=== PATIENT | male | born 1965 | race Caucasian/White ===

== ENCOUNTER 2018-01-19 08:35 | Day surgery (SDC) | payer BC ==
[2018-01-15 10:23] VITALS: BMI 37.6
[~2018-01-19 08:35] MED LIST: LACTATED RINGERS 1,000 ML IV SCH
[2018-01-19 08:51] VITALS: RESP 16; TEMP 97.6
[2018-01-19] MEDS ORDERED: LIDOCAINE 1% 20 ML VIAL (10MG/ML) FOR IV START INTRADERMA ONE (08:51)
[2018-01-19 08:56] LABS: Glucose,Whole Blood 112 mg/dL (75-99)
[2018-01-19] MEDS ORDERED: LIDOCAINE 1% INJ 10MG/ML (20 ML MDV) ONE (09:54)
[2018-01-19] MEDS ORDERED: PROPOFOL 10 MG/ML 20 ML VIAL IV ONE (09:54)
--- NOTE | 2018-01-19 10:32 | P.PCN ---
Date of Procedure: 01/19/18 Procedure(s) Performed: Procedure: Colonoscopy and biopsy. Preoperative diagnosis: Screening for neoplasia. Postoperative diagnosis: Right colon polyps biopsied but no large polyps or obvious cancer. Preparation: HalfLytely prep. Sedation: Was provided by anesthesia. Brief clinical history: The patient is a 52-year-old male who is referred for this evaluation for screening for neoplasia age being his risk factor. His father had polyps but there is no family history of colon cancer. The patient has no abdominal complaints, bleeding or anemia. This would be his first colonoscopy. Procedure: With the patient on his left lateral decubitus position and after informed consent and adequate sedation, the perianal area was inspected and it did not show any fissures or fistulas. There were no masses felt on digital rectal examination. The Olympus CFQ 160L and inserted in the rectum in the usual fashion and advanced to the cecum. The preparation was less than ideal on the right side, and in the proximal right colon there were multiple benign- appearing polyps that where somewhat flat and broadly attached to the bowel wall. These were medium in size. Because of his less than ideal preparation on the right side and the flat nature of some of these polyploid areas, I proceeded to obtain multiple biopsies and no attempt was made to snare or remove these polyps piecemeal at this time. Elsewhere, the colon appeared healthy. No other polyps or tumors were seen. I retroflexed the endoscope in the rectum before the endoscope was withdrawn. The patient tolerated the procedure well. Plan: I summarized the findings to the patient. Will await pathology results and make further plans based on his biopsy results. I will keep you updated on his progress.
[2018-01-19 10:57] VITALS: BP 155/93; PULSE 68
== END 2018-01-19 11:32 | disposition home or self-care (01) ==
LOC: ORWHC2ENDO 08:35
DX: Z12.11 Encounter for screening for malignant neoplasm of colon (principal); D12.2 Benign neoplasm of ascending colon; I10 Essential (primary) hypertension; E78.5 Hyperlipidemia, unspecified; E11.9 Type 2 diabetes mellitus without complications; G47.33 Obstructive sleep apnea (adult) (pediatric); E66.01 Morbid (severe) obesity due to excess calories; Z68.37 Body mass index [BMI] 37.0-37.9, adult; Z83.71 Family history of colonic polyps; Z88.1 Allergy status to other antibiotic agents; Z79.84 Long term (current) use of oral hypoglycemic drugs; Z79.899 Other long term (current) drug therapy
CPT/HCPCS: 45380; 88305; J2001; J2704

== ENCOUNTER 2020-09-28 11:25 | Emergency (ER) | payer BC ==
[2020-09-28 11:35] VITALS: TEMP 97.9
[2020-09-28] MEDS ORDERED: HYDROcodone/APAP 5-325MG 1 EACH TAB PO STA (11:54)
--- NOTE | 2020-09-28 11:58 | ED ---
General Adult HPI - General Chief complaint: Back Pain/Injury Stated complaint: Back pain, abd pain, leg numbness Time Seen by Provider: 09/28/20 11:36 Source: patient, RN notes reviewed, old records reviewed Mode of arrival: wheelchair Limitations: no limitations - History of Present Illness Initial comments: 55-year-old male patient to ED for evaluation. Patient reports that yesterday he was walking and he stepped into a hole. He did not fall to the ground however he did stumble. He comes to ED today complaining of left parasternal ba ck pain. Denies any radiculopathy, denies any loss of bowel or bladder control or any lower extremity weakness. Systemic: Pt denies fatigue, fever/chills, rash. Pt denies weakness, night sweats, weight loss. Neuro: Pt denies headache, visual disturbances, syncope or pre-syncope. HEENT: Pt denies ocular discharge or irritation, otalgia, rhinorrhea, pharyngitis or notable lymphadenopathy. Cardiopulmonary: Pt denies chest pain, SOB, heart palpitations, dyspnea on exertion. Abdominal/GI: Pt denies abdominal pain, n/v/d. : Pt denies dysuria, burning w/ urination, frequency/urgency. Denies new onset urinary or bowel incontinence. MSK: Pt denies loss of strength or function in extremities. Neuro: Pt denies new onset weakness, paresthesias. - Related Data Home Medications Medication Instructions Recorded Confirmed Pravastatin Sodium [Pravachol] 40 mg PO PC-SUPPER 12/26/14 09/28/20 amLODIPine BES/OLMESARTAN MED 1 tab PO PC-SUPPER 12/26/14 09/28/20 [Armen 5-40 mg Tablet] metFORMIN HCL [Glucophage] 1,000 mg PO PC-BID 12/26/14 09/28/20 Canagliflozin [Invokana] 300 mg PO PC-SUPPER 01/15/18 09/28/20 Acetaminophen Tab [Tylenol Tab] 500 mg PO Q6H PRN 09/28/20 09/28/20 Ergocalciferol [Vitamin D2] 50,000 unit PO TH 09/28/20 09/28/20 Ibuprofen [Motrin Ib] 200 mg PO Q6H PRN 09/28/20 09/28/20 Semaglutide [Ozempic] 0.5 mg SQ WE 09/28/20 09/28/20 Simethicone [Gas-X] 125 mg PO BID PRN 09/28/20 09/28/20 Allergies Allergy/AdvReac Type Severity Reaction Status Date / Time ceftriaxone sodium Allergy Rash/Hives Verified 09/28/20 12:56 [From Rocephin] Review of Systems ROS Statement: Those systems with pertinent positive or pertinent negative responses have been documented in the HPI. ROS Other: All systems not noted in ROS Statement are negative. Past Medical History Past Medical History: Diabetes Mellitus, Eye Disorder, Hyperlipidemia, Hypertension, Pneumonia Additional Past Medical History / Comment(s): MCKAY CATARACTS History of Any Multi-Drug Resistant Organisms: None Reported Additional Past Surgical History / Comment(s): VASECTOMY,mckay cataracts Past Anesthesia/Blood Transfusion Reactions: No Reported Reaction Additional Past Anesthesia/Blood Transfusion Reaction / Comment(s): no hx general anesthesia or hx blood transfusion Past Psychological History: No Psychological Hx Reported Smoking Status: Never smoker Past Alcohol Use History: None Reported Past Drug Use History: None Reported - Past Family History Mother Family Medical History: Cancer Additional Family Medical History / Comment(s): lung General Exam - General Exam Comments Initial Comments: Constitutional: NAD, AOX3, Pt has pleasant affect. HEENT: NC/AT, trachea midline, neck supple, no lymphadenopathy. External ears appear normal, without discharge. Mucous membranes moist. Eyes PERRLA, EOM intact. There is no scleral icterus. No pallor noted. Cardiopulmonary: RRR, no murmurs, rubs or gallops, no JVD noted. Lungs CTAB in anterior and posterior brandon. No peripheral edema. Abdominal exam: Abdomen soft and non-distended. Abdomen non-tender to palpation in all 4 quadrants. Bowel sounds active in LLQ. No hepatosplenomegaly. No ecchymosis Neuro: CN II-XII grossly intact. No nuchal rigidity. No raccon eyes, no parker sign, no hemotympanum. No cervical spinal tenderness. MSK: No posterior calf tenderness bilaterally, homans sign negative bilaterally. Posterior tibialis and radial pulse +2 bilaterally. Sensation intact in upper and lower extremities. Full active ROM in upper and lower extremities, 5/5 stregnth. mild paralumbar tenderness. No Skin changes. Limitations: no limitations Course Vital Signs 09/28/20 09/28/20 11:30 12:59 Temperature 97.9 F Pulse Rate 97 70 Respiratory 20 18 Rate Blood Pressure 183/99 171/96 O2 Sat by Pulse 96 98 Oximetry Medical Decision Making - Medical Decision Making 55-year-old male patient to ED for evaluation of left paralumbar back discomfort after stepping in a hole yesterday. Denies any chest pain shortness of breath. Deniess any radiculopathy. Denies any red flag symptoms. plain film of lumbar spine displayed spondylosis. Patient did request patient have an EKG that she is thought that he looked a little flushed earlier today. This was performed. Displayed sinus rhythm with frequent PVCs. Patient reports that he felt as if his abdomen was a little bit bloated today. He reports he has been eating very little besides deer chili last 2 days. I did discuss further workup patient including laboratory investigations and computed tomography. This is declining. He reports that he will return for any worsening symptoms. I did monitor patient monitor without any arrhythmia, a few scattered PVCs. Patient denying chest pain shortness breath or palpitations. Will discharge the patient follow-up and return precautions. Case discussed in depth with Dr. Ward. - EKG Data -: EKG Interpreted by Me (and Dr. Ward ) EKG Comments: ventricular rate 68, SD interval 164, QRS 86, QT/QT 380/404. Sinus rhythm with frequent PVCs. No concern for acute ischemia. Disposition Clinical Impression: Lumbar back sprain Disposition: HOME SELF-CARE Condition: Stable Instructions (If sedation given, give patient instructions): Acute Low Back Pain (ED) Additional Instructions: Follow up with PCP tomorrow. Return to ED with any worsening symptoms. Is patient prescribed a controlled substance at d/c from ED?: No Referrals: Geronimo Ortez MD [Primary Care Provider] - 1-2 days
--- NOTE | 2020-09-28 12:28 | XR ---
EXAMINATION TYPE: XR lumbar spine 2 or 3V DATE OF EXAM: 09/28/2020 COMPARISON: None HISTORY: Back pain TECHNIQUE: Three-view lumbar spine FINDINGS: Spondylosis is present. Disc heights appear preserved. Vertebral body heights are preserved . Pedicles are intact. IMPRESSION: 1. Spondylosis. 2. No acute osseous abnormality
[2020-09-28 12:59] VITALS: BP 171/96; PULSE 70; RESP 18
[2020-09-28] MEDS ORDERED: ACET/COD 300 MG/30 MG STARTER PACK 6 TAB BTL PO STA (13:39)
== END 2020-09-28 13:57 | disposition home or self-care (01) ==
LOC: EC 11:25
DX: S33.5XXA Sprain of ligaments of lumbar spine, initial encounter (principal); E11.9 Type 2 diabetes mellitus without complications; E78.5 Hyperlipidemia, unspecified; I10 Essential (primary) hypertension; Z79.84 Long term (current) use of oral hypoglycemic drugs; Z79.899 Other long term (current) drug therapy; Z88.1 Allergy status to other antibiotic agents; Z98.42 Cataract extraction status, left eye; Z98.41 Cataract extraction status, right eye; W18.40XA Slipping, tripping and stumbling without falling, unspecified, initial encounter; Y93.01 Activity, walking, marching and hiking; Y92.89 Other specified places as the place of occurrence of the external cause
CPT/HCPCS: 72100; 93005; 99284

== ENCOUNTER → 2021-10-26 | Outpatient (CLI) | payer BC ==
--- NOTE | 2021-10-26 18:00 | ECHOF ---
Referral Reason:[id number] Heart vavle disorder MEASUREMENTS -------- HEIGHT: 180.3 cm WEIGHT: 115.7 kg BP: 136/65 RVIDd: 3.7 cm (< 3.3) IVSd: 1.5 cm (0.6 - 1.1) LVIDd: 4.6 cm (3.9 - 5.3) LVPWd: 1.5 cm (0.6 - 1.1) IVSs: 2.1 cm LVIDs: 3.0 cm LVPWs: 2.1 cm LA Diam: 3.6 cm (2.7 - 3.8) LAESV Index (A-L): 27.84 ml/m Ao Diam: 3.6 cm (2.0 - 3.7) AV Cusp: 2.2 cm (1.5 - 2.6) MV EXCURSION: 26.725 mm (> 18.000) MV EF SLOPE: 145 mm/s (70 - 150) EPSS: 0.8 cm MV E Pipo: 0.86 m/s MV DecT: 253 ms MV A Pipo: 0.90 m/s MV E/A Ratio: 0.96 FINDINGS -------- Sinus rhythm. This was a technically adequate study. The left ventricular size is normal. There is moderate concentric left ventricular hypertrophy. O verall left ventricular systolic function is normal with, an EF between 60 - 65 %. The right ventricle is mildly enlarged. Normal LA size by volume 22+/-6 ml/m2. The right atrium is normal in size. Interatrial and interventricular septum intact. The aortic valve is trileaflet, and appears structurally normal. No aortic stenosis or regurgitation. The tricuspid valve appears structurally normal. The pulmonic valve was not well visualized. The aortic root size is normal. IVC Not well visulized. There is no pericardial effusion. CONCLUSIONS -------- 1. The left ventricular size is normal. 2. There is moderate concentric left ventricular hypertrophy. 3. Overall left ventricular systolic function is normal with, an EF between 60 - 65 %. 4. The right ventricle is mildly enlarged. 5. There is no pericardial effusion. HOTEL CLERK: Sigrid Smith RDCS
== END | disposition home or self-care (01) ==
LOC: RADECHMAIN 14:37
PROVIDERS: ATTEND Family Medicine
DX: I51.7 Cardiomegaly (principal)
CPT/HCPCS: 93306

== ENCOUNTER 2022-05-30 18:58 | Inpatient (IN) | payer BC ==
[2022-05-30] MEDS ORDERED: SODIUM CHLORIDE 0.9% 1,000 ML IV STA ×2 (19:20→21:35)
[2022-05-30] MEDS ORDERED: ONDANSETRON 4 MG/2 ML VIAL IVP STA (19:20)
--- NOTE | 2022-05-30 19:26 | ED ---
General Adult HPI - General Chief complaint: Nausea/Vomiting/Diarrhea Stated complaint: Vomiting, weakness Time Seen by Provider: 05/30/22 19:04 Source: patient, RN notes reviewed Mode of arrival: ambulatory Limitations: no limitations - History of Present Illness Initial comments: 56-year-old male presents to the emergency department for evaluation of 2 episodes of nausea and vomiting, onset this afternoon. 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 Patient's spouse states when the patient came home from work he was diaphoretic and pale. States she called the PCP who recommended the patient be seen in the ER for further evaluation. Patient states he had Covid last week though was able to work throughout his illness as it was very mild. States he was seen by his PCP on Friday for a recheck with no abnormal findings. Patient states he did feel lightheaded with position change after vomiting this afternoon. Reports attempting to increase fluid intake, but this seemed to lead to additional nausea followed by another episode of vomiting. Patient denies fever, chills, headache, chest pain, shortness of breath, abdominal pain, diarrhea, or dysuria. - Related Data Home Medications Medication Instructions Recorded Confirmed Pravastatin Sodium [Pravachol] 40 mg PO DAILY 12/26/14 05/30/22 amLODIPine BES/OLMESARTAN MED 1 tab PO HS 12/26/14 05/30/22 [Armen 5-40 mg Tablet] metFORMIN HCL [Glucophage] 1,000 mg PO PC-BID 12/26/14 05/30/22 Ergocalciferol [Vitamin D2] 50,000 unit PO TH 09/28/20 05/30/22 Semaglutide [Ozempic] 0.5 mg SQ MO 09/28/20 05/30/22 Dapagliflozin Propanediol [Farxiga] 10 mg PO DAILY 05/30/22 05/30/22 Loratadine-Pseudoeph 10-240 mg 1 tab PO DAILY PRN 05/30/22 05/30/22 [Claritin-D 24 Hour] Sildenafil Citrate [Viagra] 100 mg PO DAILY PRN 05/30/22 05/30/22 Allergies Allergy/AdvReac Type Severity Reaction Status Date / Time ceftriaxone sodium Allergy Rash/Hives Verified 05/30/22 21:17 [From Rocephin] Review of Systems ROS Statement: Those systems with pertinent positive or pertinent negative responses have been documented in the HPI. ROS Other: All systems not noted in ROS Statement are negative. Past Medical History Past Medical History: Diabetes Mellitus, Eye Disorder, Hyperlipidemia, Hypertension, Pneumonia Additional Past Medical History / Comment(s): MCKAY CATARACTS History of Any Multi-Drug Resistant Organisms: None Reported Additional Past Surgical History / Comment(s): VASECTOMY,mckay cataracts Past Anesthesia/Blood Transfusion Reactions: No Reported Reaction Additional Past Anesthesia/Blood Transfusion Reaction / Comment(s): no hx general anesthesia or hx blood transfusion Past Psychological History: No Psychological Hx Reported Smoking Status: Never smoker Past Alcohol Use History: None Reported Past Drug Use History: None Reported - Past Family History Mother Family Medical History: Cancer Additional Family Medical History / Comment(s): lung General Exam Limitations: no limitations (Well-developed, well-nourished male in no acute distress. Initial temperature 98.8, pulse 75, respirations 22, blood pressure 100/68, pulse ox 100% on room air.) General appearance: alert, in no apparent distress Head exam: Present: atraumatic, normocephalic, normal inspection Eye exam: Present: normal appearance, PERRL, EOMI. Absent: scleral icterus, conjunctival injection, periorbital swelling ENT exam: Present: normal exam, normal oropharynx, mucous membranes moist Neck exam: Present: normal inspection, full ROM. Absent: tenderness, meningi smus, lymphadenopathy Respiratory exam: Present: normal lung sounds bilaterally. Absent: respiratory distress, wheezes, rales, rhonchi, stridor, chest wall tenderness Cardiovascular Exam: Present: regular rate, normal rhythm, normal heart sounds. Absent: systolic murmur, diastolic murmur, rubs, gallop, clicks GI/Abdominal exam: Present: soft, normal bowel sounds. Absent: distended, tenderness, guarding, rebound, rigid Extremities exam: Present: normal inspection, normal capillary refill. Absent: pedal edema Back exam: Present: normal inspection, full ROM. Absent: CVA tenderness (R), CVA tenderness (L) Neurological exam: Present: alert, oriented X3, CN II-XII intact, normal gait Psychiatric exam: Present: normal affect, normal mood Skin exam: Present: warm, dry, intact, normal color. Absent: rash Course Vital Signs 05/30/22 05/30/22 18:59 20:24 Temperature 98.8 F 97.9 F Pulse Rate 75 73 Respiratory 22 18 Rate Blood Pressure 100/68 124/76 O2 Sat by Pulse 100 96 Oximetry - Reevaluation(s) Reevaluation #1: 05/30/22 20:55 Critical labs include troponin 0.042 and calcium 13.1. Case discussed with Dr. Wilson. Additional labs ordered. Patient updated on findings. States he is feeling much improved after IV fluid and Zofran. 05/30/22 21:36 Notified of additional critical lab. Will continue to monitor pending additional studies. 05/30/22 22:00 [address]iscuss[address] Hep[address] infusion with Dr. Wilson who recommends initiating this treatment based on EKG changes from baseline and elevated troponin. Patient is agreeable with this POC including hospital admission. Medical Decision Making - Medical Decision Making This is a pleasant 56 year old male with a past medical history of T2D, HTN, and high cholesterol who presents to the Emergency Department for evaluation of nausea and vomiting he attributes to heat related illness. Upon arrival, patient is resting comfortably with minimal complaints of feeling sick. He is alert and oriented, answering questions appropriately. He is neurologically intact with no focal deficits. An IV was placed and patient was given 1 liter of fluids and Zofran with significant improvement. However, patient's laboratory studies revealed a number of abnormalities including renal impairment, which patient denies any history of, hypercalcemia, hyperphospatemia, and an elevated troponin with widespread EKG changes when compared with baseline. Findings were discussed with my attending. Patient will be started on Heparin in the event that this is cardiac related, especially considering patient's recent COVID-19 illness. Nephrology will be consulted for new onset renal impairment. Oncology will be consulted for concerns of malignancy. I did speak with DR. Alexander who agrees to accept this admission. Patient and spouse are agreeable with this plan of care. Attending: Katie. - Lab Data Result diagrams: 05/31/22 03:50 05/31/22 03:50 Lab Results 05/30/22 05/30/22 05/30/22 Range/Units 19:41 19:41 19:41 WBC 9.9 (3.8-10.6) k/uL RBC 5.79 (4.30-5.90) m/uL Hgb 18.1 H (13.0-17.5) gm/dL Hct 53.1 H (39.0-53.0) % MCV 91.7 (80.0-100.0) fL MCH 31.2 (25.0-35.0) pg MCHC 34.0 (31.0-37.0) g/dL RDW 13.9 (11.5-15.5) % Plt Count 313 (150-450) k/uL MPV 7.4 Neutrophils % 68 % Lymphocytes % 23 % Monocytes % 7 % Eosinophils % 0 % Basophils % 0 % Neutrophils # 6.7 (1.3-7.7) k/uL Lymphocytes # 2.3 (1.0-4.8) k/uL Monocytes # 0.7 (0-1.0) k/uL Eosinophils # 0.0 (0-0.7) k/uL Basophils # 0.0 (0-0.2) k/uL PT (9.0-12.0) sec INR (<1.2) APTT (22.0-30.0) sec Sodium 143 (137-145) mmol/L Potassium 4.5 (3.5-5.1) mmol/L Chloride 106 (98-107) mmol/L Carbon Dioxide 19 L (22-30) mmol/L Anion Gap 18 mmol/L BUN 46 H (9-20) mg/dL Creatinine 3.47 H (0.66-1.25) mg/dL Est GFR (CKD-EPI)AfAm 22 (>60 ml/min/1.73 sqM) Est GFR (CKD-EPI)NonAf 19 (>60 ml/min/1.73 sqM) Glucose 166 H (74-99) mg/dL Calcium 13.1 H* (8.4-10.2) mg/dL Ionized Calcium Maty (4.5-5.3) mg/dL Phosphorus (2.5-4.5) mg/dL Magnesium (1.6-2.3) mg/dL Total Bilirubin 0.8 (0.2-1.3) mg/dL AST 41 (17-59) U/L ALT 42 (4-49) U/L Alkaline Phosphatase 121 (38-126) U/L Troponin I 0.042 H* (0.000-0.034) ng/mL Total Protein 8.7 H (6.3-8.2) g/dL Albumin 5.2 H (3.5-5.0) g/dL Lipase (23-300) U/L PTH Intact (14.0-72.0) pg/mL Urine Color Urine Appearance (Clear) Urine pH (5.0-8.0) Ur Specific [place] (1.001-1.035) Urine Protein (Negative) Urine Glucose (UA) (Negative) Urine Ketones (Negative) Urine Blood (Negative) Urine Nitrite (Negative) Urine Bilirubin (Negative) Urine Urobilinogen (<2.0) mg/dL Ur Leukocyte Esterase (Negative) Urine RBC (0-5) /hpf Urine WBC (0-5) /hpf Ur Squamous Epith Cells (0-4) /hpf Amorphous Sediment (None) /hpf Urine Bacteria (None) /hpf Hyaline Casts (0-2) /lpf Urine Mucus (None) /hpf 05/30/22 05/30/22 05/30/22 Range/Units 20:58 21:12 21:12 WBC (3.8-10.6) k/uL RBC (4.30-5.90) m/uL Hgb (13.0-17.5) gm/dL Hct (39.0-53.0) % MCV (80.0-100.0) fL MCH (25.0-35.0) pg MCHC (31.0-37.0) g/dL RDW (11.5-15.5) % Plt Count (150-450) k/uL MPV Neutrophils % % Lymphocytes % % Monocytes % % Eosinophils % % Basophils % % Neutrophils # (1.3-7.7) k/uL Lymphocytes # (1.0-4.8) k/uL Monocytes # (0-1.0) k/uL Eosinophils # (0-0.7) k/uL Basophils # (0-0.2) k/uL PT 11.3 (9.0-12.0) sec INR 1.0 (<1.2) APTT 23.3 (22.0-30.0) sec Sodium (137-145) mmol/L Potassium (3.5-5.1) mmol/L Chloride (98-107) mmol/L Carbon Dioxide (22-30) mmol/L Anion Gap mmol/L BUN (9-20) mg/dL Creatinine (0.66-1.25) mg/dL Est GFR (CKD-EPI)AfAm (>60 ml/min/1.73 sqM) Est GFR (CKD-EPI)NonAf (>60 ml/min/1.73 sqM) Glucose (74-99) mg/dL Calcium (8.4-10.2) mg/dL Ionized Calcium Maty 6.3 H* (4.5-5.3) mg/dL Phosphorus 4.8 H (2.5-4.5) mg/dL Magnesium 2.3 (1.6-2.3) mg/dL Total Bilirubin (0.2-1.3) mg/dL AST (17-59) U/L ALT (4-49) U/L Alkaline Phosphatase (38-126) U/L Troponin I (0.000-0.034) ng/mL Total Protein (6.3-8.2) g/dL Albumin (3.5-5.0) g/dL Lipase 347 H (23-300) U/L PTH Intact (14.0-72.0) pg/mL Urine Color Urine Appearance (Clear) Urine pH (5.0-8.0) Ur Specific [place] (1.001-1.035) Urine Protein (Negative) Urine Glucose (UA) (Negative) Urine Ketones (Negative) Urine Blood (Negative) Urine Nitrite (Negative) Urine Bilirubin (Negative) Urine Urobilinogen (<2.0) mg/dL Ur Leukocyte Esterase (Negative) Urine RBC (0-5) /hpf Urine WBC (0-5) /hpf Ur Squamous Epith Cells (0-4) /hpf Amorphous Sediment (None) /hpf Urine Bacteria (None) /hpf Hyaline Casts (0-2) /lpf Urine Mucus (None) /hpf 05/30/22 05/30/22 Range/Units 21:12 21:51 WBC (3.8-10.6) k/uL RBC (4.30-5.90) m/uL Hgb (13.0-17.5) gm/dL Hct (39.0-53.0) % MCV (80.0-100.0) fL MCH (25.0-35.0) pg MCHC (31.0-37.0) g/dL RDW (11.5-15.5) % Plt Count (150-450) k/uL MPV Neutrophils % % Lymphocytes % % Monocytes % % Eosinophils % % Basophils % % Neutrophils # (1.3-7.7) k/uL Lymphocytes # (1.0-4.8) k/uL Monocytes # (0-1.0) k/uL Eosinophils # (0-0.7) k/uL Basophils # (0-0.2) k/uL PT (9.0-12.0) sec INR (<1.2) APTT (22.0-30.0) sec Sodium (137-145) mmol/L Potassium (3.5-5.1) mmol/L Chloride (98-107) mmol/L Carbon Dioxide (22-30) mmol/L Anion Gap mmol/L BUN (9-20) mg/dL Creatinine (0.66-1.25) mg/dL Est GFR (CKD-EPI)AfAm (>60 ml/min/1.73 sqM) Est GFR (CKD-EPI)NonAf (>60 ml/min/1.73 sqM) Glucose (74-99) mg/dL Calcium (8.4-10.2) mg/dL Ionized Calcium Maty (4.5-5.3) mg/dL Phosphorus (2.5-4.5) mg/dL Magnesium (1.6-2.3) mg/dL Total Bilirubin (0.2-1.3) mg/dL AST (17-59) U/L ALT (4-49) U/L Alkaline Phosphatase (38-126) U/L Troponin I (0.000-0.034) ng/mL Total Protein (6.3-8.2) g/dL Albumin (3.5-5.0) g/dL Lipase (23-300) U/L PTH Intact 54.3 (14.0-72.0) pg/mL Urine Color Yellow Urine Appearance Cloudy (Clear) Urine pH 5.5 (5.0-8.0) Ur Specific [place] 1.024 (1.001-1.035) Urine Protein 3+ H (Negative) Urine Glucose (UA) 1+ H (Negative) Urine Ketones Trace H (Negative) Urine Blood Trace H (Negative) Urine Nitrite Negative (Negative) Urine Bilirubin 1+ H (Negative) Urine Urobilinogen 3.0 (<2.0) mg/dL Ur Leukocyte Esterase Negative (Negative) Urine RBC 1 (0-5) /hpf Urine WBC 2 (0-5) /hpf Ur Squamous Epith Cells 1 (0-4) /hpf Amorphous Sediment Occasional H (None) /hpf Urine Bacteria Rare H (None) /hpf Hyaline Casts 151 H (0-2) /lpf Urine Mucus Few H (None) /hpf - EKG Data EKG shows normal: sinus rhythm Rate: normal EKG Comments: EKG obtained at 194 shows sinus rhythm with ST deviation and moderate T wave abnormality. Ventricular rate 77, [place] interval 148, QRS duration 105, QT/QTC 353/384. Interpretation abnormal ECG. - Radiology Data Radiology results: report reviewed, image reviewed Two-view chest x-ray was obtained. Report was reviewed in its entirety. Imp ression per Dr. Sanon is no acute process. Disposition Clinical Impression: Hypercalcemia, Acute renal impairment, Hyperphosphatemia, NSTEMI (non-ST el evated myocardial infarction) Disposition: ADMITTED IP TO THIS [facility] Condition: Serious Decision Date: 05/30/22 Decision Time: 22:14
[2022-05-30 19:47] LABS: Basophils % (A) 0 %; Eosinophils % (A) 0 %; HCT 53.1 % (39.0-53.0); HGB 18.1 gm/dL (13.0-17.5); Lymphocytes # (A) 2.3 k/uL (1.0-4.8); Lymphocytes % (A) 23 %; MCH 31.2 pg (25.0-35.0); MCV 91.7 fL (80.0-100.0); Mean Platelet Volume 7.4; Monocytes # (A) 0.7 k/uL (0-1.0); Monocytes % (A) 7 %; Neutrophils # (A) 6.7 k/uL (1.3-7.7); Neutrophils % (A) 68 %; Platelet Count 313 k/uL (150-450); RBC 5.79 m/uL (4.30-5.90); RDW 13.9 % (11.5-15.5); WBC 9.9 k/uL (3.8-10.6)
[2022-05-30 20:07] LABS: Albumin 5.2 g/dL (3.5-5.0); Potassium 4.5 mmol/L (3.5-5.1); Total Bilirubin 0.8 mg/dL (0.2-1.3); Total Protein 8.7 g/dL (6.3-8.2)
[2022-05-30 20:35] LABS: Calcium 13.1 mg/dL (8.4-10.2)
[2022-05-30 21:35] LABS: Magnesium 2.3 mg/dL (1.6-2.3); Phosphorus 4.8 mg/dL (2.5-4.5)
[2022-05-30 21:37] LABS: Partial Thromboplastin Time 23.3 sec (22.0-30.0); Prothrombin Time 11.3 sec (9.0-12.0)
--- NOTE | 2022-05-30 21:43 | XR ---
EXAMINATION: XR chest 2V DATE AND TIME: 05/30/2022 9:27 PM CLINICAL INDICATION: dizzyness TECHNIQUE: Departmental protocol COMPARISON: None FINDINGS: The lungs are clear. The pleural spaces are negative. The cardiac silhouette is not enlarged. The remainder of the mediastinal silhouette is unremarkable. The skeletal structures and soft tissues are negative for acute findings. IMPRESSION: NO ACUTE PROCESS.
[2022-05-30 22:10] LABS: Amorphous Sediment,Urine Occasional /hpf; Appearance,Urine Cloudy (Clear); Bacteria,Urine Rare /hpf; Bilirubin,Urine 1+ (Negative); Blood,Urine Trace (Negative); Color,Urine Yellow; Glucose,Urine (UA) 1+ (Negative); Hyaline Casts,Urine 151 /lpf (0-2); Ketones,Urine Trace (Negative); Leukocyte Esterase,Urine Negative (Negative); Mucus,Urine Few /hpf; Nitrite,Urine Negative (Negative); PH, Urine 5.5 (5.0-8.0); Protein,Urine 3+ (Negative); RBC,Urine 1 /hpf (0-5); Specific Gravity,Urine 1.024 (1.001-1.035); Squamous Epithelial Cell,Urine 1 /hpf (0-4); WBC,Urine 2 /hpf (0-5)
[2022-05-30] MEDS ORDERED: HEPARIN SODIUM 1,000 UN/ML (10ML VL) IV ONE (22:10)
[2022-05-30] MEDS ORDERED: HEPARIN SODIUM 1,000 UN/ML (10ML VL) IV PRN (22:10)
[2022-05-30] MEDS ORDERED: HEPARIN SOD,PORK IN 0.45% NACL 25,000 UNIT in 0.45% NACL 1 250ML.BAG IV SCH (22:15)
[2022-05-30] MEDS ORDERED: ACETAMINOPHEN TAB 325 MG TAB PO PRN (23:30)
[2022-05-30] MEDS ORDERED: HYDROmorphone 0.5 MG/0.5 ML SYRINGE IVP PRN (23:30)
[2022-05-30] MEDS ORDERED: ONDANSETRON 4 MG/2 ML VIAL IVP PRN (23:30)
[2022-05-30] MEDS ORDERED: NALOXONE 0.4 MG/ML 1 ML VIAL IV PRN (23:30)
[2022-05-31] MEDS ORDERED: ATORVASTATIN 80 MG TAB PO SCH (03:29)
--- NOTE | 2022-05-31 03:32 | P.HPIM ---
History of Present Illness H&P Date: 05/30/22 The patient is a 56-year-old male with a PMH of hypertension, type II DM, and hyperlipidemia who presented to the emergency room with complaints of fatigue, nausea, and vomiting. 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 He reports that he was working all day today as well, and believes he may have developed heat exhaustion. Reportedly, the patient returned home from work, his noted that he appeared pale and diaphoretic, at which time she called his PCP who advised him to go to the emergency room. The patient denied experiencing chest discomfort, shortness of breath, or palpitations. He does report lightheadedness with certain positional changes. Reports drinking adequate amounts of water over this past week. Denied experiencing cough, fever, chills. Chest x-ray in the emergency room was unremarkable. EKG reveals sinus rhythm with minimal ST segment depression noted in leads V5 and V6 with biphasic T waves in leads V3 to V6. Laboratory evaluation was remarkable for BUN 46, creatinine 3.47, calcium 13.1, troponin 0.042, and total protein 8.7. Patient denied any prior history of kidney injury or elevated calcium. Review of systems: Pertinent positives and negatives as discussed in HPI, a complete review of systems was performed and all other systems are negative. Physical examination: General: non toxic, no distress, appears at stated age, obese Derm: no unusual rashes/lesions, warm Head: atraumatic, normocephalic, symmetric Eyes: EOMI, no lid lag, anicteric sclera, pupils equal round reactive to light ENT: Nose and ears atraumatic Neck: No cervical lymphadenopathy, trachea midline, supple Mouth: no lip lesion, mucus membranes moist Cardiovascular: S1S2 reg, no murmur, positive dorsalis pedis pulse bilateral, no edema Lungs: CTA bilateral, no rhonchi, no rales, no accessory muscle use Abdominal: soft, nontender to palpation, no guarding Ext: muscle strength 5 out of 5 in all 4 extremities grossly, no gross muscle atrophy, no contractures, Neuro: CN II-XI grossly intact, no gross focal neuro deficits Psych: Alert, oriented, appropriate affect Assessment/plan Elevated troponin -Patient started on heparin infusion in the emergency room -Continue with aspirin, statin -Cardiac monitoring -Cardiology consulted Acute kidney injury -Continue IV fluids -Nephrology consulted Severe hypercalcemia, suspicious for myeloma -SPEP and UPEP ordered -PTH levels ordered -Oncology consulted Chronic conditions: Type II DM, hypertension, hyperlipidemia -Insulin sliding scale and blood glucose monitoring -Continue with remaining home medications DVT prophylaxis -Heparin infusion The patient is admitted with an anticipated greater than 2 midnight stay for evaluation of suspected melanoma. CODE STATUS: Full Code Discussed with: Patient Anticipated discharge date: 06/[address]: Home Past Medical History Past Medical History: Diabetes Mellitus, Eye Disorder, Hyperlipidemia, Hypertension, Pneumonia Additional Past Medical History / Comment(s): MCKAY CATARACTS History of Any Multi-Drug Resistant Organisms: None Reported Additional Past Surgical History / Comment(s): VASECTOMY,mckay cataracts Past Anesthesia/Blood Transfusion Reactions: No Reported Reaction Additional Past Anesthesia/Blood Transfusion Reaction / Comment(s): no hx general anesthesia or hx blood transfusion Past Psychological History: No Psychological Hx Reported Smoking Status: Never smoker Past Alcohol Use History: None Reported Additional Past Alcohol Use History / Comment(s): CHEWS TOBACCO OCC SINCE 1984 Past Drug Use History: None Reported - Past Family History Mother Family Medical History: Cancer Additional Family Medical History / Comment(s): lung Medications and Allergies Home Medications Medication Instructions Recorded Confirmed Type Pravastatin Sodium [Pravachol] 40 mg PO DAILY 12/26/14 05/30/22 History amLODIPine BES/OLMESARTAN MED 1 tab PO HS 12/26/14 05/30/22 History [Armen 5-40 mg Tablet] metFORMIN HCL [Glucophage] 1,000 mg PO PC-BID 12/26/14 05/30/22 History Ergocalciferol [Vitamin D2] 50,000 unit PO TH 09/28/20 05/30/22 History Semaglutide [Ozempic] 0.5 mg SQ MO 09/28/20 05/30/22 History Dapagliflozin Propanediol [Farxiga] 10 mg PO DAILY 05/30/22 05/30/22 History Loratadine-Pseudoeph 10-240 mg 1 tab PO DAILY PRN 05/30/22 05/30/22 History [Claritin-D 24 Hour] Sildenafil Citrate [Viagra] 100 mg PO DAILY PRN 05/30/22 05/30/22 History Allergies Allergy/AdvReac Type Severity Reaction Status Date / Time ceftriaxone sodium Allergy Rash/Hives Verified 05/30/22 21:17 [From Rocephin] Physical Exam Vitals: Vital Signs Temp Pulse Pulse Resp BP BP Pulse Ox 05/31/22 00:45 97.5 F L 70 18 147/88 99 05/30/22 20:24 97.9 F 73 18 124/76 96 05/30/22 18:59 98.8 F 75 22 100/68 100 Intake and Output 05/30/22 05/30/22 05/31/22 14:59 22:59 06:59 Other: Weight 112.037 kg 112.037 kg Results CBC & Chem 7: 05/30/22 19:41 05/30/22 19:41 Labs: Abnormal Lab Results - Last 24 Hours (Table) 05/30/22 05/30/22 05/30/22 Range/Units 19:41 19:41 19:41 Hgb 18.1 H (13.0-17.5) gm/dL Hct 53.1 H (39.0-53.0) % Carbon Dioxide 19 L (22-30) mmol/L BUN 46 H (9-20) mg/dL Creatinine 3.47 H (0.66-1.25) mg/dL Glucose 166 H (74-99) mg/dL Calcium 13.1 H* (8.4-10.2) mg/dL Ionized Calcium Maty (4.5-5.3) mg/dL Phosphorus (2.5-4.5) mg/dL Troponin I 0.042 H* (0.000-0.034) ng/mL Total Protein 8.7 H (6.3-8.2) g/dL Albumin 5.2 H (3.5-5.0) g/dL Lipase (23-300) U/L Urine Protein (Negative) Urine Glucose (UA) (Negative) Urine Ketones (Negative) Urine Blood (Negative) Urine Bilirubin (Negative) Amorphous Sediment (None) /hpf Urine Bacteria (None) /hpf Hyaline Casts (0-2) /lpf Urine Mucus (None) /hpf 05/30/22 05/30/22 05/30/22 Range/Units 20:58 21:12 21:51 Hgb (13.0-17.5) gm/dL Hct (39.0-53.0) % Carbon Dioxide (22-30) mmol/L BUN (9-20) mg/dL Creatinine (0.66-1.25) mg/dL Glucose (74-99) mg/dL Calcium (8.4-10.2) mg/dL Ionized Calcium Maty 6.3 H* (4.5-5.3) mg/dL Phosphorus 4.8 H (2.5-4.5) mg/dL Troponin I (0.000-0.034) ng/mL Total Protein (6.3-8.2) g/dL Albumin (3.5-5.0) g/dL Lipase 347 H (23-300) U/L Urine Protein 3+ H (Negative) Urine Glucose (UA) 1+ H (Negative) Urine Ketones Trace H (Negative) Urine Blood Trace H (Negative) Urine Bilirubin 1+ H (Negative) Amorphous Sediment Occasional H (None) /hpf Urine Bacteria Rare H (None) /hpf Hyaline Casts 151 H (0-2) /lpf Urine Mucus Few H (None) /hpf 05/31/22 Range/Units 00:19 Hgb (13.0-17.5) gm/dL Hct (39.0-53.0) % Carbon Dioxide (22-30) mmol/L BUN (9-20) mg/dL Creatinine (0.66-1.25) mg/dL Glucose (74-99) mg/dL Calcium (8.4-10.2) mg/dL Ionized Calcium Maty (4.5-5.3) mg/dL Phosphorus (2.5-4.5) mg/dL Troponin I 0.048 H* (0.000-0.034) ng/mL Total Protein (6.3-8.2) g/dL Albumin (3.5-5.0) g/dL Lipase (23-300) U/L Urine Protein (Negative) Urine Glucose (UA) (Negative) Urine Ketones (Negative) Urine Blood (Negative) Urine Bilirubin (Negative) Amorphous Sediment (None) /hpf Urine Bacteria (None) /hpf Hyaline Casts (0-2) /lpf Urine Mucus (None) /hpf Thrombosis Risk Factor Assmnt - Choose All That Apply Any of the Below Risk Factors Present?: Yes Each Factor Represents 1 point: Age 41-60 years, Obesity (BMI >25) Other Risk Factors: No Other congenital or acquired thrombophilia - If yes, enter type in comment: No Thrombosis Risk Factor Assessment Total Risk Factor Score: 2 Thrombosis Risk Factor Assessment Level: Low Risk
[2022-05-31 04:28] LABS: Partial Thromboplastin Time 31.4 sec (22.0-30.0)
[2022-05-31 04:33] LABS: Calcium 11.1 mg/dL (8.4-10.2); Potassium 4.3 mmol/L (3.5-5.1)
[2022-05-31 04:46] LABS: Basophils # (A) 0.1 k/uL (0-0.2); Basophils % (A) 1 %; Eosinophils # (A) 0.1 k/uL (0-0.7); Eosinophils % (A) 1 %; HCT 48.7 % (39.0-53.0); HGB 16.2 gm/dL (13.0-17.5); Lymphocytes # (A) 3.9 k/uL (1.0-4.8); Lymphocytes % (A) 46 %; MCH 30.7 pg (25.0-35.0); MCHC 33.3 g/dL (31.0-37.0); MCV 92.2 fL (80.0-100.0); Mean Platelet Volume 7.2; Monocytes # (A) 0.6 k/uL (0-1.0); Monocytes % (A) 7 %; Neutrophils # (A) 3.7 k/uL (1.3-7.7); Neutrophils % (A) 44 %; Platelet Count 240 k/uL (150-450); RBC 5.28 m/uL (4.30-5.90); WBC 8.4 k/uL (3.8-10.6)
[2022-05-31] MEDS: SODIUM CHLORIDE 0.9% 1,000 ML IV SCH ×3 (05:49→15:54)
[2022-05-31] MEDS ORDERED: ASPIRIN 325 MG TAB PO SCH (09:00)
--- NOTE | 2022-05-31 09:54 | P.CRDCN ---
History of Present Illness Consult date: 05/31/22 History of present illness: HISTORY OF PRESENT ILLNESS: This is a 56-year-old male with a past medical history significant for hypertension, hyperlipidemia, and diabetes. 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 We have been asked to see the patient in consultation for abnormal troponins. Patient examined at the bedside. Patient states he was diagnosed with Covid about a week and a half ago. Patient reports he had the vaccine in 2 booster shots. 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 He states the past few days at work he has just felt very fatigued. He reports he has been drinking adequate amounts of fluid. Yesterday he states he was unable to keep down fluids and was throwing up throughout the day. After work his recommended he come to the emergency room for further evaluation. The patient denies having any chest pain or pressure. He denies having any shortness of breath. Patient denies cough or fever. Patient does report he was taking Aleve 2-3 times a day during Covid. He denies having any previous cardiac workup in the past. He denies a family history of coronary artery disease. He is a nonsmoker and reports rare alcohol use. * EKG reveals sinus mechanism with T-wave inversions in lead 1, ST depression V3V4, and biphasic T waves in V5V6. * Chest xray negative for acute process * Laboratory data: WBC 8.4. Hemoglobin 16.2. Platelet count 240. Sodium 139. Potassium 4.3. BUN 49. Creatinine 3.42. Troponin 0.042. 0.048. 0.047. * Current home cardiac medications include amlodipine-Olmesartan 5-40mg daily and Pravachol 40 mg daily REVIEW OF SYSTEMS: At the time of my exam: CONSTITUTIONAL: Denies fever or chills. HEENT: Denies blurred vision, vision changes, or eye pain. Denies hemoptysis CARDIOVASCULAR: Denies chest pain. Denies orthopnea. Denies PND. Denies palpitations RESPIRATORY: Denies shortness of breath. GASTROINTESTINAL: Denies abdominal pain. Denies nausea or vomiting. HEMATOLOGIC: Denies bleeding disorders. GENITOURINARY: Denies any blood in urine. SKIN: Denies pruitis. Denies rash. PHYSICAL EXAM: VITAL SIGNS: Reviewed. GENERAL: Well-developed in no acute distress. HEENT: Head is normocephalic. Pupils are equal, round. Sclerae anicteric. Mucous membranes of the mouth are moist. Neck supple. No JVD or thyromegaly LUNGS: Respirations even and unlabored. Lungs essentially clear to auscultation bilaterally. HEART: Regular rate and rhythm. S1 and S2 heard. ABDOMEN: Soft. Nondistended. Nontender. EXTREMITIES: Normal range of motion. No clubbing or cyanosis. Peripheral pulses intact. No lower extremity edema NEUROLOGIC: Awake and alert. Oriented x 3. ASSESSMENT: Generalized fatigue Nausea and vomiting x 1 day Acute renal failure Abnormal troponins, ACS ruled out, may be secondary to TAMMY Abnormal EKG, can not rule out underlying CAD Hypercalcemia Hypertension Hyperlipidemia Diabetes PLAN: An acute coronary event has been ruled out Obtain 2-D echo to assess cardiac structure and function Discontinue IV heparin Decrease aspirin to 81 mg daily Hold ARB secondary to TAMMY. Resume amlodipine. Monitor blood pressure. Resume home dose of Pravachol Nephrology following for acute renal failure Patient will require outpatient stress testing when his acute issues have resolv ed Further recommendations pending patient's course Nurse practitioner note has been reviewed by physician. Signing provider agrees with the documented findings, assessment, and plan of care. Past Medical History Past Medical History: Diabetes Mellitus, Eye Disorder, Hyperlipidemia, Hypertension, Pneumonia Additional Past Medical History / Comment(s): MCKAY CATARACTS History of Any Multi-Drug Resistant Organisms: None Reported Additional Past Surgical History / Comment(s): VASECTOMY,mckay cataracts Past Anesthesia/Blood Transfusion Reactions: No Reported Reaction Additional Past Anesthesia/Blood Transfusion Reaction / Comment(s): no hx general anesthesia or hx blood transfusion Past Psychological History: No Psychological Hx Reported Smoking Status: Never smoker Past Alcohol Use History: None Reported Additional Past Alcohol Use History / Comment(s): CHEWS TOBACCO OCC SINCE 1984 Past Drug Use History: None Reported - Past Family History Mother Family Medical History: Cancer Additional Family Medical History / Comment(s): lung Medications and Allergies Home Medications Medication Instructions Recorded Confirmed Type Pravastatin Sodium [Pravachol] 40 mg PO DAILY 12/26/14 05/30/22 History amLODIPine BES/OLMESARTAN MED 1 tab PO HS 12/26/14 05/30/22 History [Armen 5-40 mg Tablet] metFORMIN HCL [Glucophage] 1,000 mg PO PC-BID 12/26/14 05/30/22 History Ergocalciferol [Vitamin D2] 50,000 unit PO TH 09/28/20 05/30/22 History Semaglutide [Ozempic] 0.5 mg SQ MO 09/28/20 05/30/22 History Dapagliflozin Propanediol [Farxiga] 10 mg PO DAILY 05/30/22 05/30/22 History Loratadine-Pseudoeph 10-240 mg 1 tab PO DAILY PRN 05/30/22 05/30/22 History [Claritin-D 24 Hour] Sildenafil Citrate [Viagra] 100 mg PO DAILY PRN 05/30/22 05/30/22 History Allergies Allergy/AdvReac Type Severity Reaction Status Date / Time ceftriaxone sodium Allergy Rash/Hives Verified 05/30/22 21:17 [From Brody] Physical Exam Vitals: Vital Signs Temp Pulse Pulse Resp BP BP Pulse Ox 05/31/22 03:50 60 18 144/84 95 05/31/22 00:45 97.5 F L 70 18 147/88 99 05/30/22 20:24 97.9 F 73 18 124/76 96 05/30/22 18:59 98.8 F 75 22 100/68 100 Intake and Output 05/30/22 05/31/22 05/31/22 22:59 06:59 14:59 Intake Total 77.539 Balance 77.539 Intake: Intake, IV Titration 77.539 Amount Heparin Sod,Pork in 0.45% 77.539 NaCl 25,000 unit In 0.45 % NaCl 1 250ml.bag @ 8.93 UNITS/KG/HR 10.005 mls/ hr IV .Q24H [facility] Rx#: [id number] Other: Weight 112.037 kg 112.037 kg Results 05/31/22 03:50 05/31/22 03:50 Cardiac Enzymes 05/30/22 05/30/22 05/31/22 Range/Units 19:41 19:41 00:19 AST 41 (17-59) U/L Troponin I 0.042 H* 0.048 H* (0.000-0.034) ng/mL 05/31/22 Range/Units 03:50 AST (17-59) U/L Troponin I 0.047 H* (0.000-0.034) ng/mL Coagulation 05/30/22 05/31/22 Range/Units 21:12 03:50 PT 11.3 11.0 (9.0-12.0) sec APTT 23.3 31.4 H (22.0-30.0) sec CBC 05/30/22 05/31/22 Range/Units 19:41 03:50 WBC 9.9 8.4 (3.8-10.6) k/uL RBC 5.79 5.28 (4.30-5.90) m/uL Hgb 18.1 H 16.2 (13.0-17.5) gm/dL Hct 53.1 H 48.7 (39.0-53.0) % Plt Count 313 240 (150-450) k/uL Comprehensive Metabolic Panel 05/30/22 05/31/22 Range/Units 19:41 03:50 Sodium 143 139 (137-145) mmol/L Potassium 4.5 4.3 (3.5-5.1) mmol/L Chloride 106 108 H (98-107) mmol/L Carbon Dioxide 19 L 22 (22-30) mmol/L BUN 46 H 49 H (9-20) mg/dL Creatinine 3.47 H 3.42 H (0.66-1.25) mg/dL Glucose 166 H 109 H (74-99) mg/dL Calcium 13.1 H* 11.1 H (8.4-10.2) mg/dL AST 41 (17-59) U/L ALT 42 (4-49) U/L Alkaline Phosphatase 121 (38-126) U/L Total Protein 8.7 H (6.3-8.2) g/dL Albumin 5.2 H (3.5-5.0) g/dL Current Medications Generic Name Dose Route Start Last Admin Trade Name Freq PRN Reason Stop Dose Admin Acetaminophen 650 mg 05/30/22 23:30 Acetaminophen Tab 325 Mg Tab PO Q6HR PRN Mild Pain or Fever > 100.5 Aspirin 325 mg 05/31/22 09:00 Aspirin 325 Mg Tab PO DAILY GIULIANO Atorvastatin Calcium 80 mg 05/31/22 03:29 05/31/22 05:48 Atorvastatin 80 Mg Tab PO 80 mg HS GIULIANO Administration Heparin Sodium (Porcine) 0 unit 05/30/22:10 05/31/22 06:06 Heparin Sodium 1,000 Un/Ml (10ml Vl) IV 4,000 unit PER PROTOCOL PRN Administration Low PTT Protocol Hydromorphone HCl 0.5 mg 05/30/22 23:30 Hydromorphone 0.5 Mg/0.5 Ml Syringe IVP Q3HR PRN Moderate Pain Heparin Sodium/Sodium Chloride 250 mls @ 10.005 mls/hr 05/30/22 22:15 05/31/22 06:06 25,000 unit/ Sodium Chloride IV 11.93 units/kg/hr .Q24H [facility] 13.366 mls/hr Titration Protocol 8.93 UNITS/KG/HR Sodium Chloride 1,000 mls @ 130 mls/hr 05/30/22 23:30 05/31/22 05:49 Saline 0.9% IV 130 mls/hr .Q7H42M GIULIANO Administration Naloxone HCl 0.2 mg 05/30/22 23:30 Naloxone 0.4 Mg/Ml 1 Ml Vial IV Q2M PRN Opioid Reversal Ondansetron HCl 4 mg 05/30/22 23:30 Ondansetron 4 Mg/2 Ml Vial IVP Q8HR PRN Nausea And Vomiting Intake and Output 05/30/22 05/31/22 05/31/22 22:59 06:59 14:59 Intake Total 77.539 Balance 77.539 Intake: Intake, IV Titration 77.539 Amount Heparin Sod,Pork in 0.45% 77.539 NaCl 25,000 unit In 0.45 % NaCl 1 250ml.bag @ 8.93 UNITS/KG/HR 10.005 mls/ hr IV .Q24H [facility] Rx#: [id number] Other: Weight 112.037 kg 112.037 kg 05/31/22 03:50 05/31/22 03:50
--- NOTE | 2022-05-31 10:16 | P.NPCON ---
History of Present Illness - Reason for Consult acute renal failure - History of Present Illness Patient is a 56-year-old male with history of hypertension, type 2 diabetes, hyperlipidemia. Patient presented to the hospital with complaints of increased weakness, nausea and vomiting. Patient reports having test is positive for COVID-19 about a week ago. He has been working outside in the heat and did a dmit to decreased fluid intake. No history of kidney disease previously No history of hypercalcemia Patient is noted to have a serum creatinine of 3.4 and a serum calcium of 13.1 mg/dL. UA shows 3+ protein Patient admits to use of Tums as outpatient. He states he has been voiding although he noticed decreased urine output prior to admission. Blood pressure has not been low. Patient was maintained on angiotensin receptor blockers prior to admission. Review of Systems Aspirin HPI Past Medical History Past Medical History: Diabetes Mellitus, Eye Disorder, Hyperlipidemia, Hypertension, Pneumonia Additional Past Medical History / Comment(s): MCKAY CATARACTS History of Any Multi-Drug Resistant Organisms: None Reported Additional Past Surgical History / Comment(s): VASECTOMY,mckay cataracts Past Anesthesia/Blood Transfusion Reactions: No Reported Reaction Additional Past Anesthesia/Blood Transfusion Reaction / Comment(s): no hx general anesthesia or hx blood transfusion Past Psychological History: No Psychological Hx Reported Smoking Status: Never smoker Past Alcohol Use History: None Reported Additional Past Alcohol Use History / Comment(s): CHEWS TOBACCO OCC SINCE 1984 Past Drug Use History: None Reported - Past Family History Mother Family Medical History: Cancer Additional Family Medical History / Comment(s): lung Medications and Allergies Home Medications Medication Instructions Recorded Confirmed Type Pravastatin Sodium [Pravachol] 40 mg PO DAILY 12/26/14 05/30/22 History amLODIPine BES/OLMESARTAN MED 1 tab PO HS 12/26/14 05/30/22 History [Armen 5-40 mg Tablet] metFORMIN HCL [Glucophage] 1,000 mg PO PC-BID 12/26/14 05/30/22 History Ergocalciferol [Vitamin D2] 50,000 unit PO TH 09/28/20 05/30/22 History Semaglutide [Ozempic] 0.5 mg SQ MO 09/28/20 05/30/22 History Dapagliflozin Propanediol [Farxiga] 10 mg PO DAILY 05/30/22 05/30/22 History Loratadine-Pseudoeph 10-240 mg 1 tab PO DAILY PRN 05/30/22 05/30/22 History [Claritin-D 24 Hour] Sildenafil Citrate [Viagra] 100 mg PO DAILY PRN 05/30/22 05/30/22 History Allergies Allergy/AdvReac Type Severity Reaction Status Date / Time ceftriaxone sodium Allergy Rash/Hives Verified 05/30/22 21:17 [From Rocepmnn] Physical Exam Vitals: Vital Signs Temp Pulse Pulse Resp BP BP Pulse Ox 05/31/22 09:18 97.8 F 59 L 16 136/83 99 05/31/22 03:50 60 18 144/84 95 05/31/22 00:45 97.5 F L 70 18 147/88 99 05/30/22 20:24 97.9 F 73 18 124/76 96 05/30/22 18:59 98.8 F 75 22 100/68 100 Intake and Output 05/30/22 05/31/22 05/31/22 22:59 06:59 14:59 Intake Total 77.539 Balance 77.539 Intake: Intake, IV Titration 77.539 Amount Heparin Sod,Pork in 0.45% 77.539 NaCl 25,000 unit In 0.45 % NaCl 1 250ml.bag @ 8.93 UNITS/KG/HR 10.005 mls/ hr IV .Q24H [facility] Rx#: [id number] Other: Weight 112.037 kg 112.037 kg Patient is awake, comfortable, not in any acute distress Examination of the heart S1 and S2 Examination lungs bilateral breath sounds are heard Abdomen is soft nontender Examination of the lower extremities shows no evidence of edema SOFTWARE SPECIALIST exam grossly intact Results - Lab Results Most recent lab results Calcium 11.1 mg/dL (8.4-10.2) H 05/31/22 03:50 Phosphorus 4.8 mg/dL (2.5-4.5) H 05/30/22 21:12 Magnesium 2.3 mg/dL (1.6-2.3) 05/30/22 21:12 05/31/22 03:50 05/31/22 03:50 Assessment and Plan Assessment: 1. Acute kidney injury multifactorial including hypercalcemia, hypovolemia in the setting of use of angiotensin receptor blockers. Given the proteinuria noted on urine analysis we do need to rule out underlying paraproteinemia. Workup has been ordered. 2. Hypercalcemia in a patient with acute kidney injury and history of use of Tums. Presence of proteinuria increases likelihood for underlying paraproteinemia and workup for multiple myeloma has been ordered. PTH is slightly on the higher side given the calcium of 11. PTH is at 54.3. Patient is maintained on normal saline. 3. History of COVID-19 infection 1 week ago 4. Volume depletion 5. Borderline elevated troponins currently maintained on IV heparin 6. Type 2 diabetes maintained on Glucophage and Farsi the, currently on hold Plan: Continue IV fluids Follow-up on urine immunofixation Check 25 hydroxy vitamin D and Julio level. 1,25 hydroxy vitamin D level is pend ing Continue to hold off on metformin farxiga and ARBs Repeat labs in a.m. Avoid nephrotoxic agents Accurate I's and O's Follow-up on ultrasound kidneys. Next Thank you for the consultation, we'll continue to follow the patient with you during his hospitalization
--- NOTE | 2022-05-31 10:23 | US ---
EXAMINATION TYPE: US renals and bladder DATE OF EXAM: 05/31/2022 COMPARISON: NONE CLINICAL HISTORY: TAMMY. TAMMY, pt states dehydration EXAM MEASUREMENTS: Right Kidney: 14.0 x 6.7 x 5.7 cm Left Kidney: 13.4 x 6.1 x 6.1 cm Right Kidney: Larger in size, otherwise appeared wnl Left Kidney: Larger in size, otherwise appeared wnl Bladder: wnl Bilateral Jets seen: No There is no evidence for hydronephrosis at this point in time. lobulations of both kidneys. No nephrolithiasis is seen. No masses are identified. The urinary bladder is anechoic. The visualized liver is hyperechoic. Spleen measures 12.2 cm in length. IMPRESSION: No hydronephrosis or shadowing calculi. Hepatic steatosis.
--- NOTE | 2022-05-31 10:49 | CA ---
Transthoracic Echo Report Name: Sherwin Rodrigues Age: 56 Gender: M : 1965 Exam Date: 05/31/2022 08:28 Exam Location: [place] [facility] Ht (in): 72 Wt (lb): 247 Ordering Physician: Connie Arenas Attending/Referring Phys: [id number], Deepa Box Lidder Sigrid Smith, SIERRA Procedure CPT: Indications: LV function Cardiac Hx: Technical Quality: Good Contrast 1: Total Dose (mL): Contrast 2: Total Dose (mL): MEASUREMENTS (Male / Female) Normal Values 2D ECHO LV Diastolic Diameter PLAX 4.8 cm 4.2 - 5.9 / 3.9 - 5.3 cm LV Systolic Diameter PLAX 3.4 cm IVS Diastolic Thickness 1.3 cm 0.6 - 1.0 / 0.6 - 0.9 cm LVPW Diastolic Thickness 1.3 cm 0.6 - 1.0 / 0.6 - 0.9 cm LV Relative Wall Thickness 0.5 RV Internal Dim ED PLAX 3.6 cm LA Systolic Diameter LX 3.9 cm 3.0 - 4.0 / 2.7 - 3.8 cm LA Volume 57.9 cm??? 18 - 58 / 22 - 52 cm??? M-MODE Aortic Root Diameter MM 3.5 cm MV E Point Septal Separation 0.7 cm AV Cusp Separation MM 2.2 cm DOPPLER AV Peak Velocity 147.4 cm/s AV Peak Gradient 8.7 mmHg MV Area PHT 2.6 cm??? Mitral E Point Velocity 63.7 cm/s Mitral A Point Velocity 74.4 cm/s Mitral E to A Ratio 0.9 MV Deceleration Time 291.1 ms MV E' Velocity 8.4 cm/s Mitral E to MV E' Ratio 7.6 FINDINGS Left Ventricle Left ventricular ejection fraction is estimated at 60-65 %. Left ventricular cavity size normal. Mild concentric left ventricular hypertrophy. Right Ventricle Mild right ventricular dilatation. Unable to estimate the right ventricular systolic pressure. Right Atrium Normal right atrial size. Left Atrium Normal left atrial size. No evidence for an atrial septal defect. Mitral Valve Structurally normal mitral valve. No mitral stenosis, regurgitation or prolapse. Aortic Valve Trileaflet aortic valve. No aortic valve stenosis or regurgitation. Tricuspid Valve Structurally normal tricuspid valve. No tricuspid stenosis, regurgitation or prolapse. Pulmonic Valve Structurally normal pulmonic valve. Pericardium Normal pericardium. No pericardial effusion. Aorta Normal size aortic root and proximal ascending aorta. CONCLUSIONS Normal left ventricular ejection fraction 60-65% Mild LVH No mitral regurgitation No pericardial effusion Previewed by: Dr. Antonio Olivares DO (Electronically Signed) Final Date: 31 May 2022 10:48
--- NOTE | 2022-05-31 11:23 | P.PN ---
Subjective Progress Note Date: 05/31/22 Patient is a 56-year-old male with hypertension, type II DM, and hyperlipidemia who presented to the ED with complaints of fatigue, nausea, and vomiting. He tested positive for COVID on 05/22/22. In the emergency department he was evaluated. Chest x-ray was unremarkable. EKG revealed sinus rhythm. Laboratory evaluation was remarkable for BUN 46, creatinine 3.47, calcium 13.1, troponin 0.042, and total protein 8.7. He was started on IV fluids and was admitted. He was also started on heparin drip for his mildly elevated troponin. His troponin remained flat. Cardiology and nephrology were consulted. Patient seen and examined at bedside with present. He denies any known history of kidney problems. He is feeling much better than yesterday. Much less fatigue and less muscle cramping. No chest pain, shortness breath or nausea or vomiting. He is asking if he can eat. General: Ill appearing, mild distress, appears at stated age Derm: warm, dry Head: atraumatic, normocephalic, symmetric Eyes: EOMI, no lid lag, anicteric sclera Mouth: no lip lesion, mucus membranes dry Cardiovascular: S1S2 reg, no murmur, positive posterior tibial pulse bilateral, Lungs: CTA bilateral, no rhonchi, no rales , no accessory muscle use Abdominal: soft, nontender to palpation, no guarding, no appreciable organomegaly Ext: no gross muscle atrophy, no edema, no contractures Neuro: CN II-XI grossly intact, no focal neuro deficits Psych: Alert, oriented, appropriate affect Assessment/plan: TAMMY Hypercalcemia - Nephrology recs - IVF - Renal US without hydro - hold metformin, ARB - concern for possible myeloma with incread calcium and TAMMY - await oncology recs - free kappa/lambda pending, S Pep, VIt D, ESTEFANI level , RF, Immunoglobulins pending Elevated troponin - cardio recs: outpatient stress test - ACS ruled out - D/C heparin - Echo EF 60-65% DM 2 - SSI - follow BS - check A1C - hold farxiga, hold ozempic - hold metformin HTN - hold ARB - continue with norvasc - follow BP HLD - statin Objective - Vital Signs Vital signs: Vital Signs Temp 97.8 F 05/31/22 09:18 Pulse 59 L 05/31/22 09:18 Resp 16 05/31/22 09:18 BP 136/83 05/31/22 09:18 Pulse Ox 99 05/31/22 09:18 FiO2 Intake & Output 05/30/22 05/31/22 05/31/22 18:59 06:59 18:59 Intake Total 77.539 Output Total 100 125 Balance -22.461 -125 Weight 112.037 kg 112.037 kg Intake: Intake, IV Titration 77.539 Amount Heparin Sod,Pork in 0.45% 77.539 NaCl 25,000 unit In 0.45 % NaCl 1 250ml.bag @ 8.93 UNITS/KG/HR 10.005 mls/ hr IV .Q24H [facility] Rx#: [id number] Output: Urine 100 125 - Labs CBC & Chem 7: 05/31/22 03:50 05/31/22 03:50 Labs: Abnormal Lab Results - Last 24 Hours (Table) 05/30/22 05/30/22 05/30/22 Range/Units 19:41 19:41 19:41 Hgb 18.1 H (13.0-17.5) gm/dL Hct 53.1 H (39.0-53.0) % APTT (22.0-30.0) sec Chloride (98-107) mmol/L Carbon Dioxide 19 L (22-30) mmol/L BUN 46 H (9-20) mg/dL Creatinine 3.47 H (0.66-1.25) mg/dL Glucose 166 H (74-99) mg/dL Calcium 13.1 H* (8.4-10.2) mg/dL Ionized Calcium Maty (4.5-5.3) mg/dL Phosphorus (2.5-4.5) mg/dL Troponin I 0.042 H* (0.000-0.034) ng/mL Total Protein 8.7 H (6.3-8.2) g/dL Albumin 5.2 H (3.5-5.0) g/dL Lipase (23-300) U/L Urine Protein (Negative) Urine Glucose (UA) (Negative) Urine Ketones (Negative) Urine Blood (Negative) Urine Bilirubin (Negative) Amorphous Sediment (None) /hpf Urine Bacteria (None) /hpf Hyaline Casts (0-2) /lpf Urine Mucus (None) /hpf 05/30/22 05/30/22 05/30/22 Range/Units 20:58 21:12 21:51 Hgb (13.0-17.5) gm/dL Hct (39.0-53.0) % APTT (22.0-30.0) sec Chloride (98-107) mmol/L Carbon Dioxide (22-30) mmol/L BUN (9-20) mg/dL Creatinine (0.66-1.25) mg/dL Glucose (74-99) mg/dL Calcium (8.4-10.2) mg/dL Ionized Calcium Maty 6.3 H* (4.5-5.3) mg/dL Phosphorus 4.8 H (2.5-4.5) mg/dL Troponin I (0.000-0.034) ng/mL Total Protein (6.3-8.2) g/dL Albumin (3.5-5.0) g/dL Lipase 347 H (23-300) U/L Urine Protein 3+ H (Negative) Urine Glucose (UA) 1+ H (Negative) Urine Ketones Trace H (Negative) Urine Blood Trace H (Negative) Urine Bilirubin 1+ H (Negative) Amorphous Sediment Occasional H (None) /hpf Urine Bacteria Rare H (None) /hpf Hyaline Casts 151 H (0-2) /lpf Urine Mucus Few H (None) /hpf 05/31/22 05/31/22 05/31/22 Range/Units 00:19 03:50 03:50 Hgb (13.0-17.5) gm/dL Hct (39.0-53.0) % APTT 31.4 H (22.0-30.0) sec Chloride (98-107) mmol/L Carbon Dioxide (22-30) mmol/L BUN (9-20) mg/dL Creatinine (0.66-1.25) mg/dL Glucose (74-99) mg/dL Calcium (8.4-10.2) mg/dL Ionized Calcium Maty (4.5-5.3) mg/dL Phosphorus (2.5-4.5) mg/dL Troponin I 0.048 H* 0.047 H* (0.000-0.034) ng/mL Total Protein (6.3-8.2) g/dL Albumin (3.5-5.0) g/dL Lipase (23-300) U/L Urine Protein (Negative) Urine Glucose (UA) (Negative) Urine Ketones (Negative) Urine Blood (Negative) Urine Bilirubin (Negative) Amorphous Sediment (None) /hpf Urine Bacteria (None) /hpf Hyaline Casts (0-2) /lpf Urine Mucus (None) /hpf 05/31/22 Range/Units 03:50 Hgb (13.0-17.5) gm/dL Hct (39.0-53.0) % APTT (22.0-30.0) sec Chloride 108 H (98-107) mmol/L Carbon Dioxide (22-30) mmol/L BUN 49 H (9-20) mg/dL Creatinine 3.42 H (0.66-1.25) mg/dL Glucose 109 H (74-99) mg/dL Calcium 11.1 H (8.4-10.2) mg/dL Ionized Calcium Maty (4.5-5.3) mg/dL Phosphorus (2.5-4.5) mg/dL Troponin I (0.000-0.034) ng/mL Total Protein (6.3-8.2) g/dL Albumin (3.5-5.0) g/dL Lipase (23-300) U/L Urine Protein (Negative) Urine Glucose (UA) (Negative) Urine Ketones (Negative) Urine Blood (Negative) Urine Bilirubin (Negative) Amorphous Sediment (None) /hpf Urine Bacteria (None) /hpf Hyaline Casts (0-2) /lpf Urine Mucus (None) /hpf
[2022-05-31 11:42] LABS: Protein/Creatinine Ratio,Urine 0.144
[2022-05-31] MEDS: ASPIRIN 81 MG PO SCH (11:44)
[2022-05-31] MEDS: amLODIPine 5 MG TAB PO SCH (12:39)
[2022-05-31 13:03] LABS: Amylase 151 U/L (30-110); LDH 390 U/L (313-618)
--- NOTE | 2022-05-31 14:06 | XR ---
EXAMINATION TYPE: XR bone survey complete DATE OF EXAM: 05/31/2022 COMPARISON: Chest x-ray 05/30/2022, lumbar spine radiograph 09/28/2020. HISTORY: Assess for lytic lesions. Bony calvarium : 2 views of the bony calvarium demonstrate. No suspicious lesions. Spine: Two views of the cervical, thoracic and lumbar spines are submitted. No suspicious lesions. M ild multilevel degenerative changes of the visualized spine with disc space narrowing, endplate scler osis, and anterior osteophytosis. PELVIS: Single view of the pelvis demonstrates. No suspicious lesions. UPPER EXTREMITIES: Two views of the upper extremities. No suspicious lesions. LOWER EXTREMITIES: 2 views of the lower extremities. No suspicious lesions. IMPRESSION: No evidence for suspicious osseous lesions.
[2022-05-31 18:17] LABS: Rheumatoid Factor, Qnt <10 IU/mL (0-15)
--- NOTE | 2022-05-31 19:49 | P.CONS ---
History of Present Illness - Reason for Consult Consult date: 05/31/22 Hypercalcemia Requesting physician: Lottie Alexander - History of Present Illness Patient is a pleasant 56 year old man seen in first time in hospital today after we were asked to further evaluate for potantial hhypercalcemia of malignancy. 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 He was working in the heat the past couple days per his wi fe, and presented with fatigue, nausea and vomting. On admission found to be hypercalcemic and in acute renal insuffieciency Review of Systems All systems: negative Constitutional: Reports as per HPI Past Medical History Past Medical History: Diabetes Mellitus, Eye Disorder, Hyperlipidemia, Hyp ertension, Pneumonia Additional Past Medical History / Comment(s): MCKAY CATARACTS History of Any Multi-Drug Resistant Organisms: None Reported Additional Past Surgical History / Comment(s): VASECTOMY,mckay cataracts Past Anesthesia/Blood Transfusion Reactions: No Reported Reaction Additional Past Anesthesia/Blood Transfusion Reaction / Comm: no hx general anesthesia or hx blood transfusion Past Psychological History: No Psychological Hx Reported Smoking Status: Never smoker Past Alcohol Use History: None Reported Additional Past Alcohol Use History / Comment(s): CHEWS TOBACCO OCC SINCE 1984 Past Drug Use History: None Reported - Past Family History Mother Family Medical History: Cancer Additional Family Medical History / Comment(s): lung Medications and Allergies Home Medications Medication Instructions Recorded Confirmed Type Pravastatin Sodium [Pravachol] 40 mg PO DAILY 12/26/14 05/30/22 History amLODIPine BES/OLMESARTAN MED 1 tab PO HS 12/26/14 05/30/22 History [Armen 5-40 mg Tablet] metFORMIN HCL [Glucophage] 1,000 mg PO PC-BID 12/26/14 05/30/22 History Ergocalciferol [Vitamin D2] 50,000 unit PO TH 09/28/20 05/30/22 History Semaglutide [Ozempic] 0.5 mg SQ MO 09/28/20 05/30/22 History Dapagliflozin Propanediol [Farxiga] 10 mg PO DAILY 05/30/22 05/30/22 History Loratadine-Pseudoeph 10-240 mg 1 tab PO DAILY PRN 05/30/22 05/30/22 History [Claritin-D 24 Hour] Sildenafil Citrate [Viagra] 100 mg PO DAILY PRN 05/30/22 05/30/22 History Allergies Allergy/AdvReac Type Severity Reaction Status Date / Time ceftriaxone sodium Allergy Rash/Hives Verified 05/30/22 21:17 [From [facility]] Physical Exam Vitals: Vital Signs Temp Pulse Pulse Resp BP BP Pulse Ox 05/31/22 09:18 97.8 F 59 L 16 136/83 99 05/31/22 03:50 60 18 144/84 95 05/31/22 00:45 97.5 F L 70 18 147/88 99 05/30/22 20:24 97.9 F 73 18 124/76 96 05/30/22 18:59 98.8 F 75 22 100/68 100 Intake and Output 05/30/22 05/31/22 05/31/22 22:59 06:59 14:59 Intake Total 77.539 Balance 77.539 Intake: Intake, IV Titration 77.539 Amount Heparin Sod,Pork in 0.45% 77.539 NaCl 25,000 unit In 0.45 % NaCl 1 250ml.bag @ 8.93 UNITS/KG/HR 10.005 mls/ hr IV .Q24H [facility] Rx#: [id number] Other: Weight 112.037 kg 112.037 kg - Constitutional General appearance: cooperative, no acute distress - EENT Eyes: EOMI ENT: NA/AT - Neck Neck: normal ROM - Respiratory Respiratory: bilateral: diminished - Cardiovascular Rhythm: regularly irregular - Gastrointestinal General gastrointestinal: soft - Integumentary Integumentary: pale - Musculoskeletal Musculoskeletal: generalized weakness Results CBC & Chem 7: 05/31/22 03:50 05/31/22 03:50 Labs: Abnormal Lab Results - Last 24 Hours (Table) 05/30/22 05/30/22 05/30/22 Range/Units 19:41 19:41 19:41 Hgb 18.1 H (13.0-17.5) gm/dL Hct 53.1 H (39.0-53.0) % APTT (22.0-30.0) sec Chloride (98-107) mmol/L Carbon Dioxide 19 L (22-30) mmol/L BUN 46 H (9-20) mg/dL Creatinine 3.47 H (0.66-1.25) mg/dL Glucose 166 H (74-99) mg/dL Calcium 13.1 H* (8.4-10.2) mg/dL Ionized Calcium Maty (4.5-5.3) mg/dL Phosphorus (2.5-4.5) mg/dL Troponin I 0.042 H* (0.000-0.034) ng/mL Total Protein 8.7 H (6.3-8.2) g/dL Albumin 5.2 H (3.5-5.0) g/dL Lipase (23-300) U/L Urine Protein (Negative) Urine Glucose (UA) (Negative) Urine Ketones (Negative) Urine Blood (Negative) Urine Bilirubin (Negative) Amorphous Sediment (None) /hpf Urine Bacteria (None) /hpf Hyaline Casts (0-2) /lpf Urine Mucus (None) /hpf 05/30/22 05/30/22 05/30/22 Range/Units 20:58 21:12 21:51 Hgb (13.0-17.5) gm/dL Hct (39.0-53.0) % APTT (22.0-30.0) sec Chloride (98-107) mmol/L Carbon Dioxide (22-30) mmol/L BUN (9-20) mg/dL Creatinine (0.66-1.25) mg/dL Glucose (74-99) mg/dL Calcium (8.4-10.2) mg/dL Ionized Calcium Maty 6.3 H* (4.5-5.3) mg/dL Phosphorus 4.8 H (2.5-4.5) mg/dL Troponin I (0.000-0.034) ng/mL Total Protein (6.3-8.2) g/dL Albumin (3.5-5.0) g/dL Lipase 347 H (23-300) U/L Urine Protein 3+ H (Negative) Urine Glucose (UA) 1+ H (Negative) Urine Ketones Trace H (Negative) Urine Blood Trace H (Negative) Urine Bilirubin 1+ H (Negative) Amorphous Sediment Occasional H (None) /hpf Urine Bacteria Rare H (None) /hpf Hyaline Casts 151 H (0-2) /lpf Urine Mucus Few H (None) /hpf 05/31/22 05/31/22 05/31/22 Range/Units 00:19 03:50 03:50 Hgb (13.0-17.5) gm/dL Hct (39.0-53.0) % APTT 31.4 H (22.0-30.0) sec Chloride (98-107) mmol/L Carbon Dioxide (22-30) mmol/L BUN (9-20) mg/dL Creatinine (0.66-1.25) mg/dL Glucose (74-99) mg/dL Calcium (8.4-10.2) mg/dL Ionized Calcium Maty (4.5-5.3) mg/dL Phosphorus (2.5-4.5) mg/dL Troponin I 0.048 H* 0.047 H* (0.000-0.034) ng/mL Total Protein (6.3-8.2) g/dL Albumin (3.5-5.0) g/dL Lipase (23-300) U/L Urine Protein (Negative) Urine Glucose (UA) (Negative) Urine Ketones (Negative) Urine Blood (Negative) Urine Bilirubin (Negative) Amorphous Sediment (None) /hpf Urine Bacteria (None) /hpf Hyaline Casts (0-2) /lpf Urine Mucus (None) /hpf 05/31/22 Range/Units 03:50 Hgb (13.0-17.5) gm/dL Hct (39.0-53.0) % APTT (22.0-30.0) sec Chloride 108 H (98-107) mmol/L Carbon Dioxide (22-30) mmol/L BUN 49 H (9-20) mg/dL Creatinine 3.42 H (0.66-1.25) mg/dL Glucose 109 H (74-99) mg/dL Calcium 11.1 H (8.4-10.2) mg/dL Ionized Calcium Maty (4.5-5.3) mg/dL Phosphorus (2.5-4.5) mg/dL Troponin I (0.000-0.034) ng/mL Total Protein (6.3-8.2) g/dL Albumin (3.5-5.0) g/dL Lipase (23-300) U/L Urine Protein (Negative) Urine Glucose (UA) (Negative) Urine Ketones (Negative) Urine Blood (Negative) Urine Bilirubin (Negative) Amorphous Sediment (None) /hpf Urine Bacteria (None) /hpf Hyaline Casts (0-2) /lpf Urine Mucus (None) /hpf Assessment and Plan Plan: Hypercalcemia - Most likely related to dehydration and heat stroke, which also resulted in acute renal insufficiency, none the less further work-up has been ordered. Acute Kidney Failure As above Nephrology following Plan: - Further diagnostic labwork and skeletal survey Dr. Lee: I have completed the full history and ohysical and adeveloped the above impression and plan, agree with dictation, dictated as a ascribe
[2022-05-31 21:43] VITALS: RESP 18
[2022-06-01 07:54] LABS: HCT 46.6 % (39.0-53.0); HGB 15.3 gm/dL (13.0-17.5); MCH 30.3 pg (25.0-35.0); MCHC 32.9 g/dL (31.0-37.0); MCV 92.1 fL (80.0-100.0); Mean Platelet Volume 7.1; Platelet Count 224 k/uL (150-450); RBC 5.06 m/uL (4.30-5.90); RDW 13.6 % (11.5-15.5); WBC 6.6 k/uL (3.8-10.6)
[2022-06-01 08:06] LABS: Albumin 3.8 g/dL (3.5-5.0); Calcium 10.2 mg/dL (8.4-10.2); Potassium 4.7 mmol/L (3.5-5.1); Total Bilirubin 0.6 mg/dL (0.2-1.3); Total Protein 6.4 g/dL (6.3-8.2)
[2022-06-01] MEDS ORDERED: PRAVASTATIN SODIUM 40 MG TAB PO SCH (09:00)
[2022-06-01] MEDS: amLODIPine 5 MG TAB PO SCH (09:29)
[2022-06-01] MEDS: ASPIRIN 81 MG PO SCH (09:30)
--- NOTE | 2022-06-01 09:32 | P.PN ---
Subjective Patient is seen for follow-up for acute kidney injury and hypercalcemia. Patient reports good urine output. He is maintained on IV fluids. Serum creatinine is down from 3.4-1.3 today. Serum calcium down to 10.2. Patient had been taking Tums. So far most workup is negative. PTH was high for a calcium of 11.1. Serologies are negative. Urine light chains are pending Routine creatinine ratio was 0.14 Objective - Vital Signs Vital signs: Vital Signs Temp 98.2 F 06/01/22 09:12 Pulse 62 06/01/22 09:12 Resp 18 06/01/22 09:12 BP 150/83 06/01/22 09:12 Pulse Ox 97 06/01/22 09:12 FiO2 Intake & Output 05/31/22 06/01/22 06/01/22 18:59 06:59 18:59 Intake Total 960 540 Output Total 400 830 Balance 560 -290 Intake: Oral 960 540 Output: Urine 125 830 Post Void Residual 275 - Exam Awake, comfortable, not in any acute distress Examination of the heart S1 and S2 Examination of the lungs bilateral breath sounds are heard Abdomen is soft nontender Examination of the lower extremities shows no evidence of edema [employer]IC[employer] exam is grossly intact - Labs CBC & Chem 7: 06/01/22 07:16 06/01/22 07:16 Labs: Abnormal Lab Results - Last 24 Hours (Table) 05/31/22 05/31/22 05/31/22 Range/Units 11:55 11:55 11:55 APTT 48.9 H (22.0-30.0) sec Chloride (98-107) mmol/L BUN (9-20) mg/dL Creatinine (0.66-1.25) mg/dL Glucose (74-99) mg/dL Creatine Kinase 220 H (55-170) U/L Amylase 151 H (30-110) U/L 06/01/22 Range/Units 07:16 APTT (22.0-30.0) sec Chloride 110 H (98-107) mmol/L BUN 39 H (9-20) mg/dL Creatinine 1.30 H (0.66-1.25) mg/dL Glucose 116 H (74-99) mg/dL Creatine Kinase (55-170) U/L Amylase (30-110) U/L Assessment and Plan Assessment: 1. Acute kidney injury multifactorial including hypercalcemia, hypovolemia in the setting of use of angiotensin receptor blockers. Given the proteinuria noted on urine analysis we do need to rule out underlying paraproteinemia. W orkup has been ordered. 2. Hypercalcemia in a patient with acute kidney injury and history of use of Tums. Presence of proteinuria increases likelihood for underlying paraproteinemia and workup for multiple myeloma has been ordered. PTH is slightly on the higher side given the calcium of 11. PTH is at 54.3. Patient is maintained on normal saline. 3. History of COVID-19 infection 1 week ago 4. Volume depletion 5. Borderline elevated troponins currently maintained on IV heparin 6. Type 2 diabetes maintained on Glucophage and Farsi the, currently on hold Plan: Check parathyroid nuclear scan Patient is advised to maintain off of calcium supplements/Tums Follow-up on serum and urine immunofixation Patient can be discharged from nephrology standpoint with follow-up as outpatient regarding proteinuria. He is advised to avoid use of NSAIDs as well.
[2022-06-01 12:52] LABS: Glucose,Whole Blood 156 mg/dL (70-110)
[2022-06-01 14:28] VITALS: BP 157/79; PULSE 69; TEMP 98
--- NOTE | 2022-06-01 15:04 | P.DS ---
Providers Date of admission: 05/30/22 23:21 Expected date of discharge: 06/01/22 Attending physician: Lottie Alexander MD Consults: 05/30/22 23:30 Consult Physician Urgent Consulting Provider: [facility] Consult Reason/Comments: NSTEMI, Elevated troponin, EKG changes Do you want consulting provider notified?: Yes, Notify in am Consult Physician Urgent Consulting Provider: Neetu Tomas Consult Reason/Comments: New onset renal impairment, hypercalcemia Do you want consulting provider notified?: Yes, Notify in am 05/31/22 00:05 Consult Physician Urgent Consulting Provider: Rajan Smith Consult Reason/Comments: Hypercalcemia, concern for malignancy Do you want consulting provider notified?: Yes, Notify in am Primary care physician: Geronimo Ortez MD Hospital Course: Discharge Diagnosis: Acute kidney injury secondary to dehydration Hypercalcemia Recent COVID-19 infection Diabetes mellitus type 2 Elevated troponin suspect secondary to acute kidney injury Hypertension Dyslipidemia Obesity with BMI 33.5 Hospital Course: Patient is a 56-year-old male with hypertension, type II DM, and hyperlipidemia who presented to the ED with complaints of fatigue, nausea, and vomiting. He tested positive for COVID on 05/22/22. In the emergency department he was evaluated. Chest x-ray was unremarkable. EKG revealed sinus rhythm. Laboratory evaluation was remarkable for BUN 46, creatinine 3.47, calcium 13.1, troponin 0.042, and total protein 8.7. He was started on IV fluids and was admitted. He was also started on heparin drip for his mildly elevated troponin. His troponin remained flat. Cardiology and nephrology were consulted. He underwent a renal ultrasound showed no evidence of hydronephrosis or renal stones. He underwent an echocardiogram which showed a preserved ejection fraction of 50-55% with mild LVH but was otherwise unremarkable. He was also seen by hematology/oncology and underwent a bone survey which was negative for signs of osteolytic disease. His renal function improved and was back to baseline. He was determined stable for discharge home. His parathyroid hormone level was slightly higher than anticipated for his level of hypercalcemia. Therefore he parathyroid uptake scan was recommended. This will be done outpatient setting. Patient was provided with a prescription for this test, this was discussed with Dr. Tomas was in agreement of this can be done in the outpatient setting. We also discussed with the patient is due to have an outpatient stress test completed will follow up with cardiology for this. Follow-up: Patient will resume prior medications. He will stay away from [facility] and any vitamins or herbal supplements at this time. He will stay off of his Farxiga for the next 48 hours and then resume. He will follow-up with Dr. Tomas and once 2 weeks, Dr. Shields in 1-2 weeks, Dr. Ortez next week. Should any of his test point towards malignancy he will be referred back to hematology/oncology. He will stay Pending at discharge: Free lambda, protein electrophoresis, vitamin D, angiotensin-converting enzyme, immunofixation Patient seen and examined at bedside. Feels back to baseline. Fatigue and achiness is resolved. No nausea or vomiting. is present at bedside. All questions answered. They are clear about the plan of care and the importance of maintaining follow-up as discussed above. Vital signs reviewed and stable. General: nontoxic, no distress, appears at stated age Derm: warm, dry Head: atraumatic, normocephalic, symmetric Eyes: EOMI, no lid lag, anicteric sclera Mouth: no lip lesion, mucus membranes moist Cardiovascular: S1S2 reg, no murmur, positive posterior tibial pulse bilateral, Lungs: CTA bilateral, no rhonchi, no rales , no accessory muscle use Abdominal: soft, nontender to palpation, no guarding, no appreciable organomegaly Ext: no gross muscle atrophy, no edema, no contractures Neuro: CN II-XI grossly intact, no focal neuro deficits Psych: Alert, oriented, appropriate affect A total of 45 minutes of time were spent preparing this complex discharge summary. Patient was discharged on 06/01/22. Patient Condition at Discharge: Stable Plan - Discharge Summary Discharge Rx Participant: No New Discharge Prescriptions: New Aspirin 81 mg PO DAILY tab Continue metFORMIN HCL [Glucophage] 1,000 mg PO PC-BID Pravastatin Sodium [Pravachol] 40 mg PO DAILY amLODIPine BES/OLMESARTAN MED [Armen 5-40 mg Tablet] 1 tab PO HS Semaglutide [Ozempic] 0.5 mg SQ MO Ergocalciferol [Vitamin D2 (DRISDOL)] 50,000 unit PO TH Loratadine-Pseudoeph 10-240 mg [Claritin-D 24 Hour] 1 tab PO DAILY PRN PRN Reason: Allergy Symptoms Dapagliflozin Propanediol [Farxiga] 10 mg PO DAILY Sildenafil Citrate [Viagra] 100 mg PO DAILY PRN PRN Reason: E.D. Discharge Medication List Pravastatin Sodium [Pravachol] 40 mg PO DAILY 12/26/14 [History] amLODIPine BES/OLMESARTAN MED [Armen 5-40 mg Tablet] 1 tab PO HS 12/26/14 [History] metFORMIN HCL [Glucophage] 1,000 mg PO PC-BID 12/26/14 [History] Ergocalciferol [Vitamin D2 (DRISDOL)] 50,000 unit PO TH 09/28/20 [History] Semaglutide [Ozempic] 0.5 mg SQ MO 09/28/20 [History] Dapagliflozin Propanediol [Farxiga] 10 mg PO DAILY 05/30/22 [History] Loratadine-Pseudoeph 10-240 mg [Claritin-D 24 Hour] 1 tab PO DAILY PRN 05/30/22 [History] Sildenafil Citrate [Viagra] 100 mg PO DAILY PRN 05/30/22 [History] Aspirin 81 mg PO DAILY tab 06/01/22 [Rx] Follow up Appointment(s)/Referral(s): Neetu Tomas MD [STAFF PHYSICIAN] - 1 Week Geronimo Ortez MD [Primary Care Provider] - 1-2 days Ervin Swift MD [STAFF PHYSICIAN] - 1 Week Activity/Diet/Wound Care/Special Instructions: Special Instructions: Call on Friday Morning to set up nuclear medicine parathyroid scan [facility] Activity: as tolerated Diet: consistent carb Please stay hydrated when working outside in the heat Resume xiga on 06/03/22 No herbal supplements or vitamins Avoid Tums Discharge Disposition: HOME SELF-CARE
[2022-06-01 16:58] LABS: Glucose,Whole Blood 131 mg/dL (70-110)
--- NOTE | 2022-06-01 17:30 | PN ---
PROGRESS NOTE FOLLOW-UP NOTE: This is a 56-year-old gentleman admitted to hospital with symptoms of fatigue, tiredness, not feeling well, had a recent COVID infection, and on his initial presentation he had renal failure with a BUN of 49, creatinine of 3.4, and elevated calcium, but it has improved. He is feeling much better. The troponin elevation was secondary to renal failure. Echo showed normal LV function and wall motion. On exam, comfortable at rest. Vital signs are stable. Chest exam reveals good air entry bilaterally. Heart exam reveals first and second heart sounds. No gallop. No murmur. Examination of extremities did not reveal any edema. Peripheral pulses are felt. ASSESSMENT: 1. Acute renal failure. 2. Troponin elevation, probably related to renal failure. However, given the multiple coronary risk factors, he needs a stress test once his other symptoms resolve in the outpatient setting. MMLUIS / MATHEUSN: [id number] /
[2022-06-03 13:29] LABS: Protein, Total 7.7 g/dL (6.2-8.2)
== END 2022-06-01 18:11 | disposition home or self-care (01) | DRG 683 ==
LOC: EC 18:58 → 3SCARD 23:21
PROVIDERS: ADMIT Internal Medicine; ATTEND Internal Medicine
DX: N17.9 Acute kidney failure, unspecified (principal); T67.01XA Heatstroke and sunstroke, initial encounter; E83.39 Other disorders of phosphorus metabolism; E11.9 Type 2 diabetes mellitus without complications; E86.1 Hypovolemia; E86.0 Dehydration; E83.52 Hypercalcemia; I10 Essential (primary) hypertension; R77.8 Other specified abnormalities of plasma proteins; E66.9 Obesity, unspecified; Z68.33 Body mass index [BMI] 33.0-33.9, adult; F17.220 Nicotine dependence, chewing tobacco, uncomplicated; Z79.84 Long term (current) use of oral hypoglycemic drugs; Z79.899 Other long term (current) drug therapy; Z86.16 Personal history of COVID-19; Z88.1 Allergy status to other antibiotic agents; E78.00 Pure hypercholesterolemia, unspecified; Z87.01 Personal history of pneumonia (recurrent); Y93.H2 Activity, gardening and landscaping; Y99.0 Civilian activity done for income or pay; Z80.1 Family history of malignant neoplasm of trachea, bronchus and lung
CPT/HCPCS: 36415; 71046; 76770; 77075; 80048; 80053; 81001; 82150; 82164; 82306; 82330; 82550; 82570; 82652; 82784; 83036; 83615; 83690; 83735; 83883; 83970; 84100; 84156; 84165; 84443; 84484; 85025; 85027; 85610; 85652; 85730; 86038; 86334; 86431; 93005; 93306; 96361; 96365; 96366; 96375; 99285

== ENCOUNTER → 2022-07-08 | Outpatient (CLI) | payer BC ==
--- NOTE | 2022-07-08 16:01 | NM ---
EXAMINATION TYPE: NM parathyroid w/spect DATE OF EXAM: 07/08/2022 COMPARISON: NONE HISTORY: HYPERCALCEMIA, ELEVATED PARATHYROID HORMONE E83.52 TECHNIQUE: Following administration of 24.1 mCi Tc99m Sestamibi. Anterior projection images of the neck and ches t were obtained 10 minutes and 3 hours post injection. SPECT images of the neck and chest were obtai ernestina and reconstructed in three axes. FINDINGS: Thyroid tracer washout: Delayed images demonstrate near-complete tracer washout from the thyroid. Parathyroid uptake: There is intense uptake overlying the mid and lower pole of the left thyroid bed felt to reflect parathyroid adenoma. Normal uptake: There is physiological tracer uptake in the myocardium, liver, salivary glands, and th yroid gland. IMPRESSION: I cannot exclude parathyroid adenoma overlying the mid and lower pole of the left thyroid bed.
== END | disposition home or self-care (01) ==
LOC: RADNMMAIN 10:57
PROVIDERS: ATTEND Internal Medicine
DX: E83.52 Hypercalcemia (principal)
CPT/HCPCS: 78071; A9500

== ENCOUNTER 2025-02-08 08:17 | Day surgery (SDC) | payer BC ==
[2025-02-04 12:23] VITALS: BMI 32.8
[~2025-02-08 08:17] MED LIST changes: +LIDOCAINE 1% (10MG/ML) FOR IV START INTRADERMA PRN
[2025-02-08 08:45] VITALS: TEMP 97.2
[2025-02-08 08:56] LABS: Glucose,Whole Blood 134 mg/dL (70-110)
[2025-02-08] MEDS: IV FLUID CONTINUATION 1,000 ML IV ONE (08:56)
[2025-02-08] MEDS ORDERED: PROPOFOL 10 MG/ML 20 ML VIAL IV ONE (08:56)
[2025-02-08] MEDS ORDERED: LIDOCAINE 2% (PF) 20 MG/ML 5 ML VIAL ONE (08:56)
[2025-02-08 10:07] VITALS: RESP 16
--- NOTE | 2025-02-08 10:22 | P.PCN ---
Date of Procedure: 02/08/25 Procedure(s) Performed: BRIEF HISTORY: Patient is a 59-year-old pleasant white male scheduled for an elective colonoscopy as a part of screening for colon cancer. PROCEDURE PERFORMED: Colonoscopy with snare polypectomy, Endo Clip placement and tattooing with Maria Eugenia ink. PREOPERATIVE DIAGNOSIS: Screening for colon cancer. IV sedation per Anesthesia. PROCEDURE: After informed consent was obtained, the patient, was brought into the endoscopy unit. IV sedation was administered by Anesthesia under continuous monitoring. Digital rectal examination was normal. Initially the Olympus CF-160 flexible video colonoscope was then inserted in the rectum, gradually advanced into the cecum without any difficulty. Careful examination was performed as the scope was gradually being withdrawn. Ileocecal valve and the appendiceal orifice were visualized and appeared normal. Prep was excellent. Mucosa of the cecum, 1 cm polyp removed by snare polypectomy. In the proximal ascending colon just above ileocecal valve there was a 3.5 cm broad-based polyp that was removed by piecemeal snare polypectomy followed by Endo Clip placement and tattooing with Maria Eugenia ink. The polyp pieces were retrieved using a Chavez net. In the proximal ascending colon there was another 1 cm polyp and 2 cm polyp removed by snare polypectomy. In the distal ascending colon there was another 3 cm broad-based polyp removed by piecemeal snare polypectomy and colonoscopy with polypectomy accomplished in the transverse colon there were 3 polyps measuring between 1 cm and 1.5 cm in size removed by snare polypectomy. In the hepatic flexure there was a 2 cm polyp that could not be removed because of technical difficulties. Rest of the descending colon appeared normal. In the distal sigmoid colon there was a 1 cm pedunculated polyp removed by snare polypectomy. Scattered left- sided diverticulosis seen. Rest of the, sigmoid colon, and rectum appeared normal. Retroflexion was performed in the rectum and no lesions were seen. The patient tolerated the procedure well. IMPRESSION: 1 cm cecal polyp status post snare polypectomy 3.5 cm broad-based proximal ascending colon polyp just above the ileocecal valve status post piecemeal snare polypectomy and almost completely removed. Status post Endo Clip placement and tattooing with Maria Eugenia ink 2 cm and 1 cm proximal ascending colon polyp status post polypectomy 3 cm distal ascending colon polyp status post snare polypectomy 3 polyps in the transverse colon measuring between 1 and 1.5 cm in size removed by snare polypectomy 2 cm polyp in the hepatic flexure that could not be removed. RECOMMENDATIONS: Findings of this examination were discussed with the patient as well as his family. He was advised to follow-up with the biopsy results. He will be seen in the office in 2 weeks. Based on the biopsy results will plan a repeat colonoscopy in 1 to 2 months.
[2025-02-08 10:31] VITALS: BP 176/94; PULSE 61
== END 2025-02-08 11:10 | disposition home or self-care (01) ==
LOC: ORWHC2ENDO 08:17
PROVIDERS: ATTEND Internal Medicine Gastroenterology
DX: Z12.11 Encounter for screening for malignant neoplasm of colon (principal); D12.0 Benign neoplasm of cecum; D12.2 Benign neoplasm of ascending colon; D12.3 Benign neoplasm of transverse colon; I10 Essential (primary) hypertension; E78.5 Hyperlipidemia, unspecified; E11.9 Type 2 diabetes mellitus without complications; K21.9 Gastro-esophageal reflux disease without esophagitis; Z79.84 Long term (current) use of oral hypoglycemic drugs; Z79.899 Other long term (current) drug therapy; Z88.8 Allergy status to other drugs, medicaments and biological substances
CPT/HCPCS: 88305; 45385; 45381; J2704; J2003

== ENCOUNTER 2025-04-22 08:34 | Day surgery (SDC) | payer BC ==
[~2025-04-22 08:34] MED LIST changes: -LACTATED RINGERS 1,000 ML IV SCH
[2025-04-22 09:01] VITALS: TEMP 97.2
[2025-04-22 09:10] LABS: Glucose,Whole Blood 123 mg/dL (70-110)
[2025-04-22] MEDS: LACTATED RINGERS 1,000 ML IV ONE (09:10)
[2025-04-22] MEDS: LACTATED RINGERS 1,000 ML IV SCH (09:10)
[2025-04-22] MEDS ORDERED: LIDOCAINE 1% INJ 10MG/ML (20 ML MDV) ONE (09:27)
[2025-04-22] MEDS ORDERED: PROPOFOL 10 MG/ML 20 ML VIAL IV ONE (09:27)
--- NOTE | 2025-04-22 09:59 | P.PCN ---
Date of Procedure: 04/22/25 Procedure(s) Performed: BRIEF HISTORY: Patient is a 59-year-old pleasant white male scheduled for an elective colonoscopy as a part of follow-up of large colon polyps that was noted on recent colonoscopy as of 2024. He had a 3.5 cm broad-based proximal ascending colon polyp that was removed by piecemeal snare polypectomy and biopsy tubular adenoma. Had multiple other colon polyps noted throughout the colon and 1 polyp in the hepatic flexure that could not be removed. PROCEDURE PERFORMED: Colonoscopy with snare polypectomy. PREOPERATIVE DIAGNOSIS: Follow-up large colon polyps noted on recent colonoscopy in February 2025. IV sedation per Anesthesia. PROCEDURE: After informed consent was obtained, the patient, was brought into the endoscopy unit. IV sedation was administered by Anesthesia under continuous monitoring. Digital rectal examination was normal. Initially the Olympus CF-160 flexible video colonoscope was then inserted in the rectum, gradually advanced into the cecum without any difficulty. Careful examination was performed as the scope was gradually being withdrawn. Ileocecal valve and the appendiceal orifice were visualized and appeared normal. Prep was excellent. Mucosa of the cecum, appeared normal. On the ileocecal valve there was a 1.5 cm residual polyp that was removed by snare polypectomy. In the ascending colon there was a 2 cm residual polyp at the site of previous polypectomy that was also removed by hot snare polypectomy. In the entire flexure there was a 2 cm broad-based polyp removed by snare polypectomy. In the transverse colon there was a 1 cm and 2 cm polyp removed by snare polypectomy. In the descending colon there were 2 polyps measuring 5 mm in size removed by snare polypectomy. Rest of the sigmoid colon, and rectum appeared normal. Retroflexion was performed in the rectum and no lesions were seen. The patient tolerated the procedure well. IMPRESSION: 1.5 cm residual polyp in ileocecal valve status post snare polypectomy 2 cm ascending polyp in the ascending colon status post polypectomy 2 cm hepatic flexure polyp removed by snare polypectomy 1 cm and 2 cm proximal transverse colon polyp status post polypectomy 5 mm descending colon polyp status post snare polypectomy RECOMMENDATIONS: Findings of this examination were discussed with the patient as well as his family. He was advised to follow-up with the biopsy results. Recommended repeat colonoscopy in 1 year..
[2025-04-22 10:03] VITALS: RESP 16
[2025-04-22 10:31] VITALS: PULSE 65
[2025-04-22 10:47] VITALS: BP 158/90
== END 2025-04-22 11:04 | disposition home or self-care (01) ==
LOC: ORWHC2ENDO 08:34
PROVIDERS: ATTEND Internal Medicine Gastroenterology
DX: D12.4 Benign neoplasm of descending colon (principal); D12.2 Benign neoplasm of ascending colon; D12.6 Benign neoplasm of colon, unspecified; D12.3 Benign neoplasm of transverse colon; D12.0 Benign neoplasm of cecum
CPT/HCPCS: 45385; J2003; J2704; 88305